=== PATIENT | female | born 1965 | race Caucasian/White ===

== ENCOUNTER 2016-09-28 21:20 | Inpatient (IN) | payer OTHER ==
[~2016-09-28] VITALS: Ht 170.2 cm; Wt 76.7 kg
[2016-09-28 21:30] VITALS: BP 139/82; PULSE 77; RESP 18; TEMP 98.1; O2SAT 99
[2016-09-28] MEDS ORDERED: SODIUM CHLOR 0.9% 1000 ML INJ 1,000 ML IV SCH ×2 (21:38→23:00)
[2016-09-28] MEDS ORDERED: ONDANSETRON HCL 4 MG/2 ML VIAL IVP ONE (21:45)
[2016-09-28] MEDS ORDERED: HYDROmorphone HCL PF 1 MG/ML VIAL IV PUSH ONE (21:45)
--- NOTE | 2016-09-28 22:14 | PD ---
HPI Chief Complaint: Back/ Neck Pain or Injury Time Seen by Provider: 22:02 Travel History International Travel<30 days: No Contact w/Intl Traveler<30days: No Traveled to known affect area: No History of Present Illness HPI 51-year-old female that presents to the ED for evaluation of trauma transfer. Patient was transferred here from [facility] for evaluation of a fall. Patient had a fall from a ladder about 10 feet. Patient was evaluated at the facility and had multiple scans which were positive for a inferior pubic rami fracture as well as an L3 burst fracture with compression of the cord. The did not have a neurosurgeon or a trauma surgeon in the area so they contacted Dr. Curran from our facility who agreed to transfer to this facility for further evaluation. Patient was given pain medication with some relief but she continues to have pain. Per patient she has no numbness, tilling , weakness. Per patient on her pain is on the right hip which is the most painful. Per patient she does have some back pain but not as bad as the hip. Per patient her pain currently 6 out of 10. She denies any urinary or bowel movement issues. She denies any discoloration. No allergies to medication. No other injuries reported. Per patient she's never had any injuries to her back. She has no surgeon or PCP in the area. [facility] Past Medical History Diminished Hearing: No Tetanus Vaccination: < 5 Years Influenza Vaccination: No ?: Not Social History Alcohol Use: No Tobacco Use: No Substance Use: No Allergies-Medications (Allergen,Severity, Reaction): Coded Allergies: No Known Allergies (Unverified , 09/28/16) Review of Systems Except as stated in HPI: all other systems reviewed are Neg Physical Exam Narrative GENERAL: SKIN: Warm and dry. HEAD: Atraumatic. Normocephalic. EYES: Pupils equal and round. No scleral icterus. No injection or drainage. ENT: No nasal bleeding or discharge. Mucous membranes pink and moist. Tongue is midline. No uvula deviation. NECK: Trachea midline. No JVD. CARDIOVASCULAR: Regular rate and rhythm. No murmurs, S3, S4. RESPIRATORY: No accessory muscle use. Clear to auscultation. Breath sounds equal bilaterally. GASTROINTESTINAL: Abdomen soft, non-tender, nondistended. Hepatic and splenic margins not palpable. MUSCULOSKELETAL: Extremities without clubbing, cyanosis, or edema. No obvious deformities. Full range of motion of the upper and lower extremities bilaterally. 2+ pulses bilaterally. Patient has reproducible lumbar spine tenderness to palpation. Patient has pain with range of motion of the right hip. Good sensation in the lower legs. 5 out of 5 strength in the lower extremities. No discoloration on the lower extremities. Sensation intact. NEUROLOGICAL: Awake and alert. No obvious cranial nerve deficits. Motor grossly within normal limits. Five out of 5 muscle strength in the arms and legs. Normal speech. PSYCHIATRIC: Appropriate mood and affect; insight and judgment normal. Data Data Last Documented VS Vital Signs Date Time Temp Pulse Resp B/P Pulse Ox O2 Delivery O2 Flow Rate FiO2 09/28/16 21:30 98.1 77 18 139/82 99 Orders Hydromorphone Pf Inj (Dilaudid Pf Inj) (09/28/16 21:45) Ondansetron Inj (Zofran Inj) (09/28/16 21:45) Sodium Chlor 0.9% 1000 Ml Inj (Ns 1000 M (09/28/16 21:38) Admit Order (Ed Use Only) (09/28/16 21:42) MDM Medical Decision Making Medical Screen Exam Complete: Yes Emergency Medical Condition: Yes Medical Record Reviewed: Yes Differential Diagnosis Trauma versus L3 fracture versus palpable fracture versus pubic ramus fracture versus fall from ladder versus head injury Narrative Course 51-year-old female that presents to the ED for evaluation of trauma transfer. Patient was properly examined and her records were reviewed. Patient came here with paperwork from the facility with reports from the CAT scan as well as lab work. I reviewed extensively the medical records provided and CT of the cervical spine did not show any sign of acute disease, CT of the brain did not show any sign of acute disease, CT of the thoracic spine did not show any sign of acute disease, CT of the lumbar spine show acute impacted comminuted 3 column L3 burst fracture with Marcaine posterior displacement2. Endplate causing severe spinal canal stenosis. Fracture line involving the right L3 posterior pedicle and the left lamina. Dorsal subluxation of the right L3 [address] of the abdomen and pelvis shows fracture of the inferior right pubic drama, also fractures involving the T12 and L3. No organ injuries. Blood work show viable second of 14, RBC of 4.3, H&H of 13.6 and 40.0, platelets of 3:30, MCV of 99.3, neutrophils of 80.4%, lymphs of 12.3%. Sodium 136, potassium of 3.8, chloride of 96, CO2 of 23, a gap of 17, glucose of 101, BUN of 16, creatinine of 0.81, calcium of 8.9, GFR of 85, alcohol blood of 208. LFTs within normal limits. Chest x-ray was negative. Patient is neurovascularly intact at this time. She does complain more of right hip pain than back pain but she does have back pain. Pain at this time is 6 out of 10. She will be given 1 more dose of pain medication as well as fluids. Case was discussed with Dr. Curran who agrees to admit the patient. He wants me to contact neurosurgery. I spoke with Dr. Aviles over the phone who was made aware of CT report and who wants me to order a stat MRI as well as a stat CT and call him back with the results. These orders were placed by me. Case was signed out to my attending Dr Velazquez pending MRI report to call back Dr Aviles. Edgar Montgomery Sep 28, 2016 22:14
[2016-09-28] MEDS ORDERED: NALOXONE HCL 0.4 MG/ML AMP IV PRN (22:30)
[2016-09-28] MEDS ORDERED: SODIUM CHLORIDE 0.9% FLUSH 10 ML FLUSH IV FLUSH PRN (22:30)
[2016-09-28] MEDS ORDERED: ONDANSETRON HCL 4 MG/2 ML VIAL IV PRN (22:30)
[2016-09-28] MEDS ORDERED: MORPHINE SULFATE 4 MG/ML INJ IV PRN (22:30)
[2016-09-28] MEDS ORDERED: Post-op Orders (for Pharmacy) MISC XX ONE (22:30)
--- NOTE | 2016-09-28 22:53 | RADRPT ---
EXAM DATE/TIME: 09/28/2016 22:25 [facility] COMPARISON: No previous studies available for comparison. INDICATIONS : Trauma, fell from a ladder. Known L3 fracture. Transfer from [facility]. RADIATION DOSE: 35.86 CTDIvol (mGy) MEDICAL HISTORY : None SURGICAL HISTORY : None. ENCOUNTER: Initial ACUITY: 1 day PAIN SCALE: 9/10 LOCATION: lumbar TECHNIQUE: Volumetric scanning of the lumbar spine was performed. Multiplanar reconstructions in the sagittal, coronal and oblique axial planes were performed. Using automated exposure control and adjustment of the mA and/or kV according to patient size, radiation dose was kept as low as reasonably achievable t o obtain optimal diagnostic quality images. DICOM format image data is available electronically for review and comparison. FINDINGS: VERTEBRAE: There is a severe compression fracture at the L3 vertebral body. This involves the anterior and poste rior aspects of the L3 vertebral body. There is very prominent compressive changes at the superior as pect of the L3 vertebral body. There is a vertical component extending through the midportion of the vertebral body involving the inferior endplates. There is very prominent posterior displacement of th e posterior superior aspect of the L3 vertebral body into the spinal canal causing severe stenosis. T he posterior superior aspect of the L3 vertebral body is displaced by approximately 1.3 cm posteriorl y. There is fracturing at the base of the L3 spinous process and medial left lamina and inferior left facet. ALIGNMENT: No evidence of subluxation. T12-L1: The thecal sac has a normal diameter. No evidence of disc bulge or protrusion. The neural foramina are patent bilaterally. L1-L2: The thecal sac has a normal diameter. No evidence of disc bulge or protrusion. The neural foramina are patent bilaterally. L2-L3: There is diffuse disc bulge accompanying the fracturing of the superior aspect of the L3 vertebral [place] with retropulsion of the posterior superior aspect of the L3 vertebral body. There is severe steno sis secondary to the retropulsion with the AP dimension of the thecal sac narrowed to 5 mm. The neur al foramina are patent bilaterally. L3-L4: The thecal sac has a normal diameter. No evidence of disc bulge or protrusion. The neural foramina are patent bilaterally. L4-L5: The thecal sac has a normal diameter. No evidence of disc bulge or protrusion. The neural foramina are patent bilaterally. L5-S1: The thecal sac has a normal diameter. No evidence of disc bulge or protrusion. The neural foramina are patent bilaterally. CONCLUSION: Severe unstable fracture of the L3 level involving the anterior and posterior aspects of the L3 verte bral body and the base of the spinous process and the left lamina and left inferior facet. There is v richelle prominent posterior retropulsion of the posterior superior aspect of the L3 vertebral body creati ng severe stenosis. Kenneth Ortez MD on September 28, 2016 at 22:42 Board Certified Radiologist. This report was verified electronically.
[2016-09-28 23:00] VITALS: BP 146/78; PULSE 80; RESP 16; O2SAT 97
[2016-09-28] MEDS ORDERED: PANTOPRAZOLE SOD 40 MG DELAYED RELEASE TAB PO SCH (23:00)
--- NOTE | 2016-09-28 23:28 | PD ---
Physical Exam Date Seen by Provider: Sep 28, 2016 Time Seen by Provider: 23:00 Narrative I patient with Edgar Montgomery PA-C. Patient presents today from [facility]. The patient had a fall from a ladder and was found to have a burst fracture of the L3 lumbar spine. Patient also noted to have a pubic rami fracture. The patient was accepted by Dr. Porras, on-call trauma surgeon for transfer. The patient has CT scan that showed retropulsion of the burst fracture into the spinal canal causing severe spinal stenosis. His information was relayed to Dr. Aviles who will be taking the patient emergently to the operating room for debridement of these fragments. The patient currently is neurologically intact. Data Data Last Documented VS Vital Signs Date Time Temp Pulse Resp B/P Pulse Ox O2 Delivery O2 Flow Rate FiO2 09/28/16 21:30 98.1 77 18 139/82 99 Orders Hydromorphone Pf Inj (Dilaudid Pf Inj) (09/28/16 21:45) Ondansetron Inj (Zofran Inj) (09/28/16 21:45) Sodium Chlor 0.9% 1000 Ml Inj (Ns 1000 M (09/28/16 21:38) Admit Order (Ed Use Only) (09/28/16 21:42) MDM Medical Record Reviewed: Yes Supervised Visit with LILIAN: Yes Narrative Course 51-year-old female presents with known lumbar fracture and pubic rami fracture. The patient fell off a ladder. The patient is neurologically intact at this time. CT scan shows retropulsion of the vertebrae from L3 lumbar vertebrae, causing severe spinal stenosis. She will be taken to the operating room emergently by Dr. Aviles. Diagnosis Primary Impression: L3 burst fracture with retropulsion into the spinal canal. Additional Impressions: Fracture of right inferior pubic ramus Fall on and from ladder causing accidental injury Heber Velazquez MD Sep 28, 2016 23:28
--- NOTE | 2016-09-28 23:45 | RADRPT ---
EXAM DATE/TIME: 09/28/2016 22:37 [facility] COMPARISON: CT LUMBAR SPINE W/O CONTRAST, September 28, 2016, 22:25. INDICATIONS : Trauma. Pt fell off ladder. MEDICAL HISTORY : Hypertension. Uterine ca. SURGICAL HISTORY : Total knee replacement, left. Hysterectomy. ENCOUNTER: Initial ACUITY: 1 day PAIN SCORE: 5/10 LOCATION: back TECHNIQUE: Multiplanar multisequence MRI of the lumbar spine was performed without contrast. FINDINGS: The most caudal appearing lumbar vertebra is numbered as L5. VERTEBRAE: There is compression deformity of the L3 vertebral body with a bony fragment displaced posteriorly ma rkedly narrowing the thecal sac. The bone fragment is displaced posteriorly by almost a centimeter. Small compression fracture of the superior plate of T12. Otherwise normal alignment. CONUS: Normal level and configuration. T12-L1: The thecal sac has a normal diameter. No evidence of disc bulge or protrusion. The neural foramina are patent bilaterally. L1-L2: The thecal sac has a normal diameter. No evidence of disc bulge or protrusion. The neural foramina are patent bilaterally. L2-L3: The thecal sac has a normal diameter. No evidence of disc bulge or protrusion. The neural foramina are patent bilaterally. L3-L4: The thecal sac is markedly narrowed down to 4-5 mm in the midline. There is a prominent bone fragment from the L3 superior endplate fracture. The neural foramina are patent bilaterally. The soft tissue posterior to the L4 vertebral body I suspect epidural hematoma. L4-L5: The epidural hematoma it ends just above the 45 disc space . The thecal sac has a normal diameter. No evidence of disc bulge or protrusion. The neural foramina are patent bilaterally. L5-S1: The thecal sac has a normal diameter. No evidence of disc bulge or protrusion. The neural foramina are patent bilaterally. CONCLUSION: Prominent compression deformity with posterior displacement of the L3 vertebral body. The thecal sac is markedly narrowed. There is an epidural hematoma posteriorly L3 extending down to the L4-5 disc sp faheem. Non displaced compression deformity of T12. Ranjit Herzog MD on September 28, 2016 at 23:36 Board Certified Radiologist. This report was verified electronically.
[2016-09-29] VITALS (11 sets, daily range): BP systolic 89–154; BP diastolic 60–79; PULSE 66–97; RESP 10–31; TEMP 97.8–98.2; O2SAT 92–99
[2016-09-29] MEDS ORDERED: GELATIN POWDER 1 GM PACKET ONE (00:01)
[2016-09-29] MEDS ORDERED: methylPREDNISolone ACETATE 40 MG/ML VIAL ONE (00:01)
[2016-09-29] MEDS ORDERED: DEXAMETHASONE SOD PHOS 20 MG/5 ML VIAL ONE (00:01)
[2016-09-29] MEDS ORDERED: GENTAMICIN SULFATE 80 MG/2 ML VIAL ONE ×2 (00:01→01:05)
--- NOTE | 2016-09-29 00:35 | PD.CONS ---
[facility] Service Neurosurg Consult Requested By Leo ALEJANDRE Reason for Consult L3 fracture, spinal cord compresion Primary Care Physician Non-Staff History of Present Illness This is a 51 year old female who presents today from [facility]. The patient had a fall from a ladder 8 to 10 feet and was found to have a burst fracture of the L3 lumbar spine with compression of the spinal cord. In addition she had a pubic rami fracture. The patient was accepted by Dr. Porras, on-call trauma surgeon for transfer. The patient has CT scan that showed retropulsion of the burst fracture into the spinal canal causing severe spinal stenosis with spinal cord compression. Neurosurgical consultation was requested Review of Systems Constitutional: DENIES: Diaphoretic episodes, Fatigue, Fever, Weight gain, Weight loss, Chills, Dizziness, Change in appetite, Night Sweats Endocrine: COMPLAINS OF: Heat/cold intolerance, DENIES: Abnorml menstrual pattern, Polydipsia, Polyuria, Polyphagia Eyes: DENIES: Blurred vision, Diplopia, Eye inflammation, Eye pain, Vision loss , Photosensitivity, Double Vision Ears, nose, mouth, throat: DENIES: Tinnitus, Hearing loss, Vertigo, Nasal discharge, Oral lesions, Throat pain, Hoarseness, Ear Pain, Running Nose, Epistaxis, Sinus Pain, Toothache, Odynophagia Respiratory: DENIES: Apneas, Cough, Snoring, Wheezing, Hemoptysis, Sputum production, Shortness of breath Cardiovascular: DENIES: Chest pain, Palpitations, Syncope, Dyspnea on Exertion , PND, Lower Extremity Edema, Orthopnea, Claudication Gastrointestinal: DENIES: Abdominal pain, Black stools, Bloody stools, Constipation, Diarrhea, Nausea, Vomiting, Difficulty Swallowing, Anorexia Genitourinary: DENIES: Abnormal vaginal bleeding, Dysmenorrhea, Dyspareunia, Sexual dysfunction, Urinary frequency, Urinary incontinence, Urgency, Hematuria , Dysuria, Nocturia, Vaginal discharge Musculoskeletal: DENIES: Joint pain, Muscle aches, Stiffness, Joint Swelling, Back pain, Neck pain Integumentary: DENIES: Abnormal pigmentation, Pruritus, Rash, Nail changes, Breast masses, Breast skin changes, Nipple discharge Hematologic/lymphatic: DENIES: Bruising, Lymphadenopathy Immunologic/allergic: DENIES: Eczema, Urticaria Neurologic: COMPLAINS OF: Paresthesias, DENIES: Abnormal gait, Headache, Localized weakness, Seizures, Speech Problems, Tremor, Poor Balance Past Family Social History Allergies: Coded Allergies: No Known Allergies (Unverified , 09/28/16) Past Medical History Negative Past Surgical History None Active Ordered Medications Current Medications Hydromorphone HCl (Dilaudid Pf Inj) 0.5 mg ONCE ONCE IV PUSH Last administered on 09/28/16 21:45; Start 09/28/16 at 21:45; Stop 09/28/16 at 21:46; Status DC Ondansetron HCl 4 mg 4 mg ONCE ONCE IVP Last administered on 09/28/16 21:45; Start 09/28/16 at 21:45; Stop 09/28/16 at 21:46; Status DC Sodium Chloride 1,000 ml @ 1,000 mls/hr Q1H IV Last administered on 09/28/16 21:38; Start 09/28/16 at 21:38; Stop 09/28/16 at 22:38; Status DC Sodium Chloride (NS 1000 ml Inj) 1,000 ml @ 100 mls/hr Q10H IV ; Start 09/28/16 at 23:00 Sodium Chloride (NS Flush) 2 ml UNSCH PRN IV FLUSH FLUSH AFTER USING IV ACCESS ; Start 09/28/16 at 22:30 Sodium Chloride (NS Flush) 2 ml BID IV FLUSH ; Start 09/29/16 at 09:00 Ondansetron HCl (Zofran Inj) 4 mg Q6H PRN IV NAUSEA OR VOMITING; Start 09/28/16 at 22:30 Pantoprazole Sodium (Protonix) 40 mg Q24H PO ; Start 09/28/16 at 23:00 Docusate Sodium (Colace) 100 mg BID PO ; Start 09/29/16 at 09:00 Miscellaneous Information (Post-op Orders (for Pharmacy)) STAT ONCE XX ; Start 09/28/16 at 22:30; Stop 09/28/16 at 22:39; Status DC Oxycodone/ Acetaminophen (Percocet 5-325 Mg) 1 tab Q4H PRN PO PAIN SCALE 3 TO 5; Start 09/28/16 at 22:30 Morphine Sulfate (Morphine Inj) 4 mg Q2H PRN IV Pain 6-10 Last administered on 09/28/16t 23:16; Start 09/28/16 at 22:30 Naloxone HCl (Narcan Inj) 0.4 mg UNSCH PRN IV SEE LABEL COMMENTS; Start at 22:30 Methocarbamol (Robaxin) 500 mg Q8HR PO ; Start 09/29/16 at 06:00 Methylprednisolone Acetate (Depo-Medrol Inj) 40 mg STK-MED ONCE .ROUTE ; Start 09/29/16 at 00:01; Stop 09/29/16 at 00:03; Status DC Dexamethasone Sodium Phosphate (Decadron Inj) 20 mg STK-MED ONCE .ROUTE ; Start 09/29/16 at 00:01; Stop 09/29/16 at 00:03; Status DC Gentamicin Sulfate (Gentamicin Inj) 240 mg STK-MED ONCE .ROUTE ; Start 09/29/16 at 00:01; Stop 09/29/16 at 00:04; Status DC Gelatin (Gelfoam Powder Pack) 2 gm STK-MED ONCE .ROUTE ; Start 09/29/16 at 00:01 ; Stop 09/29/16 at 00:04; Status DC Family History Non contributory Social History Alcohol Use: No Tobacco Use: No Substance Use: No Physical Exam Vital Signs Vital Signs Date Time Temp Pulse Resp B/P Pulse Ox O2 Delivery O2 Flow Rate FiO2 09/28/16 21:30 98.1 77 18 139/82 99 Physical Exam She is alert, awake and oriented to time, place and person. Speech is fluent. Higher cognitive functions are normal. Cranial nerve examination demonstrates the pupils to be equal, round, and reactive to light. Extra-ocular movements are intact. Facial motor and sensory function are normal and symmetrical. Gross hearing is intact, bilaterally. The uvula is midline and elevates symmetrically with the soft palate. Sternocleidomastoid and trapezius muscles have normal and symmetrical strength. Other cranial nerves are intact. Neck is soft and supple. Cervical spine has a full range of motion in anterior flexion, extension, lateral bending, and rotation without pain. There is no tenderness to palpation to the spinous processes or paraspinal muscles. Muscle testing reveals normal bulk and tone overall without rigidity, spasticity , fasciculations, or atrophy. Muscle strength is 5/5 in all muscle groups of both upper extremities including deltoid, biceps, triceps, brachioradialis, wrist extension and naval aircrewman avionics. In the lower extremities, strength is 5/5 in both iliopsoas, quadriceps, hamstrings, plantar flexion, dorsiflexion, and extensor hallicus longus. Sensory examination is intact to light touch and sharp/dull discrimination in both the upper and lower extremities, symmetrically. Deep tendon reflexes are 2+ and symmetrical in the biceps, triceps, and brachioradialis, bilaterally, in the upper extremities. In the lower extremities , the patellar and Achilles are 2+, bilaterally. There is a bilateral plantar flexion response. Hoffmanns sign is negative. There is no clonus or other abnormal reflexes noted. Cerebellar examination is intact to [id number] test, rapid rhythmic alternating motion. There is no dysmetria, dysdiadochokinesia, truncal ataxia, or tremor. Imaging Last Impressions Lumbar Spine MRI 09/28/162146 Signed Impressions: Service Date/Time: Wednesday, September 28, 2016 22:37 - CONCLUSION: Prominent compression deformity with posterior displacement of the L3 vertebral body. The thecal sac is markedly narrowed. There is an epidural hematoma posteriorly L3 extending down to the L4-5 disc space. Non displaced compression deformity of T12. Ranjit Herzog MD Lumbar Spine CT 09/28/162146 Signed Impressions: Service Date/Time: Wednesday, September 28, 2016 22:25 - CONCLUSION: Severe unstable fracture of the L3 level involving the anterior and posterior aspects of the L3 vertebral body and the base of the spinous process and the left lamina and left inferior facet. There is very prominent posterior retropulsion of the posterior superior aspect of the L3 vertebral body creating severe stenosis. Kenneth Ortez MD Attending Statement I reviewed her clinical and radiological studies. neuro checks in a serial fashion. Very unstable L3 burst ftacture with spinal cord compresion. . An open reduction and internal fixation with L2-L5 arthrodhesis is indicated as recommended by the [place] [employer]. We have discussed the details including the [id number] details of the surgical procedure, its indications, alternatives, risks, and potential complications. Risks and potential complications include, but are not limited to, infection, blood loss, CSF leak, partial or complete loss of sight in one or both eyes, paresis, paralysis, permanent pain or difficulty swallowing, loss of bowel or bladder function, complications from anesthesia, blood clot, stroke, myocardial infarction, or even . Pubic fracture. Consult orthopedics Rib fracture. narcotic analgesics Respiratory. pulmonary toilette, nasotracheal suction, and breathing treatments with nebulizers. C spine is cleared PT and OT eval Nutrition. NPO Renal. monitor closely urine output, BUN and creatinine Endocrine. Monitor serial Acu checks and SSI for tight control He is anticoagulated with Efian, which increases his risk of hemorrhagic complications ID monitor for signs of infection Protonix for stress ulcer prophylaxis Hugh hose and SCD's for DVT prophylaxis Jer Aviles MD Sep 29, 2016 00:35
[2016-09-29] MEDS ORDERED: VANCOMYCIN HCL 1000 MG VIAL OTHER ONE (01:19)
[2016-09-29] MEDS ORDERED: ceFAZolin INJ 1,000 MG VIAL IV ONE (01:32)
[2016-09-29] MEDS ORDERED: NS + KCL 20 MEQ INJ 1,000 ML IV SCH (01:36)
--- NOTE | 2016-09-29 01:36 | PD.OP ---
Operative Report Surgeon: Jer Jenkins MD Sep 29, 2016 01:36
[2016-09-29 01:43] LABS: HEMATOCRIT 35.7 % (35.0-46.0); MEAN CELL VOLUME 98.1 FL (80.0-100.0); MEAN CORPUSCULAR HEMOGLOBIN 33.2 PG (27.0-34.0); MEAN CORPUSCULAR HGB CONC 33.9 % (32.0-36.0); PLATELET COUNT 265 TH/MM3 (150-450); RED BLOOD COUNT 3.64 MIL/MM3 (4.00-5.30); RED CELL DISTRIBUTION WIDTH 12.5 % (11.6-17.2); REVIEW FLAG FINAL; WHITE BLOOD COUNT 8.7 TH/MM3 (4.0-11.0)
[2016-09-29] MEDS ORDERED: ACETAMINOPHEN 325 MG TAB PO PRN (01:45)
[2016-09-29] MEDS ORDERED: diphenhydrAMINE HCL 50 MG/ML VIAL IV PRN (01:45)
[2016-09-29] MEDS ORDERED: MORPHINE SULFATE 4 MG/ML INJ IV PUSH PRN (01:45)
[2016-09-29] MEDS ORDERED: NALOXONE HCL 0.4 MG/ML AMP IV PRN (01:45)
[2016-09-29] MEDS ORDERED: SODIUM CHLORIDE 0.9% FLUSH 5 ML FLUSH IVF PRN (01:45)
[2016-09-29] MEDS ORDERED: HEPARIN SODIUM - IV 10,000 UNITS/10 ML VIAL OTHER ONE (01:49)
[2016-09-29] MEDS ORDERED: THROMBIN (TOPICAL) 5,000 UNIT VIAL OTHER ONE (02:00)
[2016-09-29] MEDS ORDERED: GELFOAM SIZE 100 OTHER ONE (02:00)
[2016-09-29] MEDS ORDERED: ceFAZolin 2 GM PREMIX 50 ML IV SCH (02:00)
[2016-09-29] MEDS ORDERED: HEPARIN SODIUM - IV 10,000 UNITS/10 ML VIAL ONE (02:39)
[2016-09-29 04:09] LABS: BLOOD GAS BASE EXCESS -6.1 mmol/L (-2-2); BLOOD GAS CARBOXYHEMOGLOBIN 1.5 % (0-4); BLOOD GAS HCO3 18 mmol/L (22-26); BLOOD GAS METHEMOGLOBIN 1.3 % (0-2); BLOOD GAS O2 HGB SATURATION 97 % (90-100); BLOOD GAS OXYGEN CONTENT 14.8 Vol % (12.0-20.0); BLOOD GAS PCO2 34 mmHg (38-42); BLOOD GAS PO2 270 mmHg (61-120); BLOOD GAS TOTAL HGB 10.4 G/DL (12.0-16.0); CRITICAL VALUE NO; FIO2 60 %; TEMP CORR TO 98.6
[2016-09-29 04:10] LABS: STAT NO
[2016-09-29] MEDS ORDERED: fentaNYL CITRATE 250 MCG/5 ML AMP ONE (05:46)
[2016-09-29] MEDS ORDERED: ACETAMINOPHEN 1000 MG/100 ML VIAL IV ONE (05:46)
[2016-09-29] MEDS ORDERED: MORPHINE SULFATE 4 MG/ML INJ ONE (05:46)
--- NOTE | 2016-09-29 05:50 | RADRPT ---
EXAM DATE/TIME: 09/29/2016 04:38 [facility] COMPARISON: No previous studies available for comparison. INDICATIONS : Open reduction internal fixation of the third lumbar vertebrae fracture. MEDICAL HISTORY : Hypertension. Uterine Ca SURGICAL HISTORY : Total knee replacement, right. Hysterectomy. ENCOUNTER: Initial ACUITY: 1 day PAIN SCORE: Non-responsive. LOCATION: Bilateral lumbar FINDINGS: Two view examination was performed. The L3 fracture has been fixated with interpedicular screws above and below the level. CONCLUSION: Fixation of L3 compression fracture or. Hardware is grossly intact. Ranjit Herzog MD on September 29, 2016 at 5:48 Board Certified Radiologist. This report was verified electronically.
[2016-09-29] MEDS: METHOCARBAMOL 500 MG TAB PO SCH ×3 (06:00→21:39)
[2016-09-29] MEDS: ceFAZolin 2 GM PREMIX 50 ML IV SCH ×3 (06:00→21:40)
[2016-09-29] MEDS ORDERED: DO NOT ADM ANY ANTICOAGULANT DRUGS PRN (06:15)
[2016-09-29] MEDS: HYDROmorphone HCL PCA 6 MG/30 ML IV SCH ×3 (06:22→14:24)
[2016-09-29 06:35] LABS: BASOPHIL % 0.1 % (0.0-2.0); HEMATOCRIT 27.1 % (35.0-46.0); HEMO FLAGS DIFF FINAL; LYMPH % 5.1 % (9.0-44.0); LYMPHOCYTE # 0.6 TH/MM3 (1.0-4.8); MEAN CORPUSCULAR HEMOGLOBIN 32.9 PG (27.0-34.0); MEAN CORPUSCULAR HGB CONC 32.9 % (32.0-36.0); MONO % 2.7 % (0.0-8.0); NEUT % 92.1 % (16.0-70.0); PLATELET COUNT 215 TH/MM3 (150-450); RED BLOOD COUNT 2.71 MIL/MM3 (4.00-5.30); RED CELL DISTRIBUTION WIDTH 12.3 % (11.6-17.2); WHITE BLOOD COUNT 11.9 TH/MM3 (4.0-11.0)
--- NOTE | 2016-09-29 06:53 | PD.CONS ---
[facility] Service Critical Care Medicine Consult Requested By Stefan Reason for Consult Critical Care Management Primary Care Physician Non-Staff History of Present Illness 51 y/o woman was helping a neighbor trim a tree when she fell approximately 10 feet from a latter to ground. Immediate back pain. Scans and MRI revealed L3 burst fracture with retropulsion of fragments and severe thecal sac compression. An epidural hematoma was noted as well. Distal neurological function was grossly intact in the ED. She went directly to the OR for decompression and reconstruction of lumbar spine. Additional injuries include left inferior pubic rami fracture and T12 compression injury. Review of Systems Constitutional: DENIES: Diaphoretic episodes, Fatigue, Fever, Weight gain, Weight loss, Chills, Dizziness, Change in appetite, Night Sweats Endocrine: DENIES: Abnorml menstrual pattern, Heat/cold intolerance, Polydipsia , Polyuria, Polyphagia Eyes: DENIES: Blurred vision, Diplopia, Eye inflammation, Eye pain, Vision loss , Photosensitivity, Double Vision Ears, nose, mouth, throat: DENIES: Tinnitus, Hearing loss, Vertigo, Nasal discharge, Oral lesions, Throat pain, Hoarseness, Ear Pain, Running Nose, Epistaxis, Sinus Pain, Toothache, Odynophagia Cardiovascular: DENIES: Chest pain, Palpitations, Syncope, Dyspnea on Exertion , PND, Lower Extremity Edema, Orthopnea, Claudication Gastrointestinal: DENIES: Abdominal pain, Black stools, Bloody stools, Constipation, Diarrhea, Nausea, Vomiting, Difficulty Swallowing, Anorexia Musculoskeletal: COMPLAINS OF: Joint pain, Muscle aches, Back pain Hematologic/lymphatic: DENIES: Bruising, Lymphadenopathy Immunologic/allergic: DENIES: Eczema, Urticaria Psychiatric: COMPLAINS OF: Anxiety Past Family Social History Allergies: Coded Allergies: No Known Allergies (Unverified , 09/28/16) Past Medical History Past Medical History Diminished Hearing: No Tetanus Vaccination: < 5 Years Influenza Vaccination: No ?: Not Social History Alcohol Use: No Tobacco Use: No Substance Use: No Allergies-Medications Allergies-Medications (Allergen,Severity, Reaction): Coded Allergies: No Known Allergies (Unverified , 09/28/16) Physical Exam Vital Signs Vital Signs Date Time Temp Pulse Resp B/P Pulse Ox O2 Delivery O2 Flow Rate FiO2 09/29/16 06:30 62 15 97/59 94 Nasal Cannula 2 09/29/16 06:22 16 09/29/16 06:15 62 15 94/59 94 Nasal Cannula 2 09/29/16 06:00 67 15 104/63 95 Nasal Cannula 2 09/29/16 05:45 75 15 96/57 94 Nasal Cannula 2 09/29/16 05:45 75 15 96/57 94 Nasal Cannula 2 09/29/16 05:37 97.8 79 15 102/61 96 Nasal Cannula 2 09/28/16 23:00 80 16 146/78 97 Room Air 09/28/16 21:30 98.1 77 18 139/82 99 Physical Exam P 67, BP 86/55, R 13, Sats 96% Head: Atraumatic. Neck: Supple, airway unobstructed. No stridor. Lungs: Clear, comfortable pattern. No adventitious sounds. Heart: NL S1S2, bradycardia, no JVD. RRR. Abdomen: Soft, nontender, no guarding, BS active. Extremities: Warm, well perfused. No edema or cyanosis. Neuro: Sleepy after sedation. Conversant. Moves legs with 5/5 strength. Toes down shantanu. KENYA. Laboratory Laboratory Tests Test 09/29/16 09/29/16 09/29/16 09/29/16 01:25 01:26 03:50 05:56 White Blood Count 8.7 11.9 Red Blood Count 3.64 2.71 Hemoglobin 12.1 8.9 Hematocrit 35.7 27.1 Mean Corpuscular Volume 98.1 100.0 Mean Corpuscular Hemoglobin 33.2 32.9 Mean Corpuscular Hemoglobin 33.9 32.9 Concent Red Cell Distribution Width 12.5 12.3 Platelet Count 265 215 Mean Platelet Volume 7.2 7.6 Blood Type O NEGATIVE O NEGATIVE Antibody Screen NEGATIVE Crossmatch Leukocyte-Reduced Red Blood Cells Blood Bank Comment Blood Gas Patient Temperature 98.6 Blood Gas HCO3 18 Blood Gas Base Excess -6.1 Blood Gas Oxygen Saturation 97 Arterial Blood pH 7.36 Arterial Blood Partial 34 Pressure CO2 Arterial Blood Partial 270 Pressure O2 Arterial Blood Oxygen Content 14.8 Arterial Blood 1.5 Carboxyhemoglobin Arterial Blood Methemoglobin 1.3 Blood Gas Hemoglobin 10.4 Blood Gas Inspired Oxygen 60 Neutrophils (%) (Auto) 92.1 Lymphocytes (%) (Auto) 5.1 Monocytes (%) (Auto) 2.7 Eosinophils (%) (Auto) 0.0 Basophils (%) (Auto) 0.1 Neutrophils # (Auto) 11.0 Lymphocytes # (Auto) 0.6 Monocytes # (Auto) 0.3 Eosinophils # (Auto) 0.0 Basophils # (Auto) 0.0 CBC Comment DIFF FINAL Differential Comment Result Diagram: 09/29/[address] and MRI lumbar spine Outside films from [facility]. Assessment and Plan Assessment and Plan Assessment: 1. Fall from 10 feet a. L3 burst fracture with thecal sac compression. b. Left inferior pubic rami fracture by report from OSH. c. T12 compression injury, stable. Plan: 1. Neuro checks scheduled. 2. Maint iv fluid. 3. Watch for urinary retention. 4. PT evaluation. 5. Protonix. 6. Hold chemical DVT px. 7. SCDs. 8. Continue trauma survey for possible associated injuries. Overall impression: Stable respiratory and hemodynamic function s/p reconstruction lumbar spine. Heber Jo MD Sep 29, 2016 06:53
[2016-09-29 07:09] LABS: BICARBONATE 21.5 MEQ/L (21.0-32.0); INDIRECT BILIRUBIN 0.2 MG/DL (0.0-0.8); POTASSIUM 3.8 MEQ/L (3.5-5.1); TOTAL BILIRUBIN ADULT 0.3 MG/DL (0.2-1.0)
[2016-09-29] MEDS: LACTULOSE SYRUP 20 GM/30 ML CUP PO SCH (08:49)
[2016-09-29] MEDS: DOCUSATE SODIUM 100 MG CAP PO SCH ×2 (08:49→21:40)
[2016-09-29] MEDS: SODIUM CHLORIDE 0.9% FLUSH 5 ML FLUSH IVF SCH ×2 (08:54→21:00)
[2016-09-29] MEDS ORDERED: PANTOPRAZOLE SODIUM 40 MG VIAL IVP SCH (09:00)
[2016-09-29] MEDS ORDERED: SODIUM CHLORIDE 0.9% FLUSH 10 ML FLUSH IV FLUSH SCH (09:00)
[2016-09-29] MEDS: PCA - TOTAL MG DILAUDID DELIVERED PER SHIFT SCH ×3 (10:00→22:00)
--- NOTE | 2016-09-29 11:20 | HHI.NSPN ---
(Saida Sanchez) Note Status Status: Progress Note (Saida Sanchez) Interval History Interval History This is a 51 year old female who presents today from [facility]. The patient had a fall from a ladder 8 to 10 feet and was found to have a burst fracture of the L3 lumbar spine with compression of the spinal cord. In addition she had a pubic rami fracture. The patient was accepted by Dr. Porras, on-call trauma surgeon for transfer. The patient has CT scan that showed retropulsion of the burst fracture into the spinal canal causing severe spinal stenosis with spinal cord compression. Neurosurgical consultation was requested. She underwent emergent ORIF L3 fracture with L2-L4 posterolateral fixation earlier this morning. 7: s/p ORIF L3 fracture, awake, alert, pain controlled on RN FLOAT pump. moving lower extremities. (Saida Sanchez) Labs, Micro, & Vital Signs Results Date Time Temp Pulse Resp B/P Pulse Ox O2 Delivery O2 Flow Rate FiO2 09/29/16 10:54 14 09/29/16 10:00 74 09/29/16 08:00 75 09/29/16 07:36 14 09/29/16 07:31 94 Nasal Cannula 3.00 09/29/16 06:30 62 15 97/59 94 Nasal Cannula 2 09/29/16 06:25 98.2 66 13 89/60 92 09/29/16 06:22 16 09/29/16 06:15 62 15 94/59 94 Nasal Cannula 2 09/29/16 06:00 67 15 104/63 95 Nasal Cannula 2 09/29/16 05:45 75 15 96/57 94 Nasal Cannula 2 09/29/16 05:45 75 15 96/57 94 Nasal Cannula 2 09/29/16 05:37 97.8 79 15 102/61 96 Nasal Cannula 2 09/28/16 23:00 80 16 146/78 97 Room Air 09/28/16 21:30 98.1 77 18 139/82 99 09/29/16 07:00 Intake Total 5251 ml Output Total 2510 ml Balance 2741 ml Constitutional Vital Signs Date Time Temp Pulse Resp B/P Pulse Ox O2 Delivery O2 Flow Rate FiO2 09/29/16 10:54 14 09/29/16 10:00 74 09/29/16 08:00 75 09/29/16 07:36 14 09/29/16 07:31 94 Nasal Cannula 3.00 09/29/16 06:30 62 15 97/59 94 Nasal Cannula 2 09/29/16 06:25 98.2 66 13 89/60 92 09/29/16 06:22 16 09/29/16 06:15 62 15 94/59 94 Nasal Cannula 2 09/29/16 06:00 67 15 104/63 95 Nasal Cannula 2 09/29/16 05:45 75 15 96/57 94 Nasal Cannula 2 09/29/16 05:45 75 15 96/57 94 Nasal Cannula 2 09/29/16 05:37 97.8 79 15 102/61 96 Nasal Cannula 2 09/28/16 23:00 80 16 146/78 97 Room Air 09/28/16 21:30 98.1 77 18 139/82 99 09/29/16 07:00 Intake Total 5251 ml Output Total 2510 ml Balance 2741 ml (Saida Sanchez) Review of Systems/Exam Exam Ms. Zapata is alert. Speech is fluent, conversing well. Cranial nerve examination: pupils equal, round and reactive to light. Motor: moving lower extremities off the bed, 5/5 plantarflexion and dorsiflexion Sensory examination is intact to light touch in both lower extremities. bilateral plantar flexion response. No ankle clonus. (Saida Sanchez) Medications Current Medications Current Medications Medications (Trade) Dose Ordered Sig/Luz Marina Route PRN Reason Start Time Stop Time Status Last Admin Dose Admin Ondansetron HCl (Zofran Inj) 4 mg Q6H PRN IV NAUSEA OR VOMITING 09/28/16 22:30 Docusate Sodium (Colace) 100 mg BID PO 09/29/16 09:00 09/29/16 08:49 Oxycodone/ Acetaminophen (Percocet 5-325 Mg) 1 tab Q4H PRN PO PAIN SCALE 3 TO 5 09/28/16 22:30 Methocarbamol (Robaxin) 500 mg Q8HR PO 09/29/16 06:00 IV Flush (NS Flush) 2 ml UNSCH PRN IVF FLUSH AFTER USING IV ACCESS 09/29/16 01:45 IV Flush (NS Flush) 2 ml BID IVF 09/29/16 09:00 09/29/16 08:54 Pantoprazole Sodium (Protonix Inj) 40 mg DAILY IVP 09/29/16 09:00 09/29/16 08:49 Morphine Sulfate (Morphine Inj) 2 mg Q2H PRN IV PUSH PAIN SCALE 1 TO 6 09/29/16 01:45 Morphine Sulfate (Morphine Inj) 4 mg Q2H PRN IV PUSH PAIN SCALE 7 TO 10 09/29/16 01:45 Acetaminophen (Tylenol) 650 mg Q4H PRN PO TEMPERATURE > 101.5 F 09/29/16 01:45 Naloxone HCl (Narcan Inj) 0.4 mg UNSCH PRN IV RESPIRATORY RATE LESS THAN 10 09/29/16 01:45 Diphenhydramine HCl (Benadryl Inj) 25 mg Q6H PRN IV ITCHING 09/29/16 01:45 Hydromorphone HCl (Dilaudid RN FLOAT Inj) 6 mg UNSCH IV 09/29/16 01:45 09/29/16 10:54 RN FLOAT Dosage Infused (Pha) 1 1 Q8HR .XX 09/29/16 06:00 Cefazolin Sodium/ Dextrose (Ancef 2 Gm Premix) 50 ml @ 100 mls/hr Q8HR IV 09/29/16 06:00 09/29/16 22:29 09/29/16 06:00 Miscellaneous Information ALL NURSING DEPARTME... UNSCH PRN .XX SEE LABEL COMMENTS 09/29/16 06:15 09/30/16 06:14 Lactulose (Lactulose Liq) 30 ml DAILY PO 09/29/16 09:00 09/29/16 08:49 (Saida Sanchez) Medical Decision Making MDM Remarks 51 y/o female s/p ORIF L3 burst fracture, L2-L4 posterolateral fixation 09/29/16 ( Saida Sanchez) Plan Plan Remarks cont pain control with RN FLOAT, cont neuro checks in ISC, clear to start mobilizing OOB later today as tolerated with TLSO brace, nonchemical dvt prophylaxis (Saida Sanchez) Attending Statement Neuro. Neuro checks in a serial fashion. Respiratory. pulmonary toilette, nasotracheal suction, and breathing treatments with nebulizers. PT and OT eval Nutrition. NPO Renal. monitor closely urine output, BUN and creatinine Endocrine. Monitor serial Acu checks and SSI for tight control ID monitor for signs of infection Protonix for stress ulcer prophylaxis Hugh hose and SCD's for DVT prophylaxis The exam, history, and the medical decision-making described in the above note were completed with the assistance of the mid-level provider. I reviewed and agree with the findings presented. I attest that I had a [id number] encounter with the patient on the same day, and personally performed and documented my assessment and findings in the medical record. (Jer Aviles MD) Saida Sanchez Sep 29, 2016 11:20 Jer Aviles MD Sep 30, 2016 08:45
[2016-09-29] MEDS ORDERED: CELE40TA PO (11:48)
[2016-09-29] MEDS ORDERED: XANA1TAB2 PO (11:48)
[2016-09-29] MEDS ORDERED: PHENYLEPH/NS 1000 MCG/10 ML SYR IV ONE (12:00)
[2016-09-29] MEDS ORDERED: NORMOSOL R INJ 2,000 ML IV ONE (12:00)
[2016-09-29] MEDS ORDERED: SODIUM CHLOR 0.9% 250 ML INJ 250 ML IV ONE (12:00)
[2016-09-29] MEDS ORDERED: SODIUM CHLORID 0.9% 500 ML INJ 500 ML IV ONE (12:00)
[2016-09-29] MEDS ORDERED: LACTATED RINGER'S 1000 ML INJ 1,000 ML IV ONE (12:00)
[2016-09-29] MEDS ORDERED: PROPOFOL 200 MG/20 ML AMP IV ONE (12:00)
[2016-09-29] MEDS ORDERED: ePHEDrine/NS 25 MG/5 ML SYR IV ONE (12:00)
[2016-09-29] MEDS ORDERED: NEOSTIGMINE 3 MG/3 ML SYR IV ONE (12:00)
[2016-09-29] MEDS ORDERED: ONDANSETRON HCL 4 MG/2 ML VIAL IV PUSH ONE (12:00)
--- NOTE | 2016-09-29 12:50 | HHI.CCPN ---
Subjective 24 Hour Review/Hospital Course 51 y..o female s/p fall,transfer form outside institution-L3 unstable fracture, which required emergent decompression,stable T12 fx,stable pubic fracture Objective Vital Signs Date Time Temp Pulse Resp B/P Pulse Ox O2 Delivery O2 Flow Rate FiO2 09/29/16 12:38 14 09/29/16 12:00 75 09/29/16 07:31 94 Nasal Cannula 3.00 09/29/16 06:30 97/59 09/29/16 06:25 98.2 Result Diagram: 09/29/16 0556 09/29/16 0556 Other Results Laboratory Tests Test 09/29/16 03:50 Blood Gas Patient Temperature 98.6 Blood Gas HCO3 18 mmol/L (22-26) Blood Gas Base Excess -6.1 mmol/L (-2-2) Blood Gas Oxygen Saturation 97 % (90-100) Arterial Blood pH 7.36 (7.380-7.420) Arterial Blood Partial 34 mmHg (38-42) Pressure CO2 Arterial Blood Partial 270 mmHg Pressure O2 (61-120) Arterial Blood Oxygen Content 14.8 Vol % (12.0-20.0) Arterial Blood 1.5 % (0-4) Carboxyhemoglobin Arterial Blood Methemoglobin 1.3 % (0-2) Blood Gas Hemoglobin 10.4 G/DL (12.0-16.0) Blood Gas Inspired Oxygen 60 % Imaging Last 24 hours Impressions Lumbar Spine X-Ray 09/29/16 0000 Signed Impressions: Service Date/Time: Thursday, September 29, 2016 04:38 - CONCLUSION: Fixation of L3 compression fracture or. Hardware is grossly intact. Ranjit Herzog MD Lumbar Spine MRI 09/28/162146 Signed Impressions: Service Date/Time: Wednesday, September 28, 2016 22:37 - CONCLUSION: Prominent compression deformity with posterior displacement of the L3 vertebral body. The thecal sac is markedly narrowed. There is an epidural hematoma posteriorly L3 extending down to the L4-5 disc space. Non displaced compression deformity of T12. Ranjit Herzog MD Lumbar Spine CT 09/28/162146 Signed Impressions: Service Date/Time: Wednesday, September 28, 2016 22:25 - CONCLUSION: Severe unstable fracture of the L3 level involving the anterior and posterior aspects of the L3 vertebral body and the base of the spinous process and the left lamina and left inferior facet. There is very prominent posterior retropulsion of the posterior superior aspect of the L3 vertebral body creating severe stenosis. Kenneth Ortez MD Exam LICENSED MORTICIAN awake,alert Hemodynamic/Cardiac stable Pulmonary/Respiratory clear bs Abdomen/GI Nutrition soft,benign Hematologic hgb 8.9 Urinary Catheter Assessment Urinary Catheter: Yes Assessment to: Continue Suazo insert reason: Surgical/Invasive Proced Assessment and Plan Plan s/p decompression L3 fx with stabilization T12 stable fracture pubic ramus fx stable overall neuro intact ortho consult keep in ICU until cleared by NS d/w ortho DVT prophylaxis Peri Mendoza MD Sep 29, 2016 12:50
--- NOTE | 2016-09-29 15:43 | PD.OP ---
Operative Report Date of Surgery: Sep 29, 2016 Preoperative Diagnosis: L3 burst fracture Postoperative Diagnosis: L3 burst fracture Procedure: open reduction of L3 fracture, L2 to L4 posterolateral fusion and autologous bone graft, L2 to L4 segmental instrumental fixation using transpedicular screws and rods, microsurgical dissection Anesthesia: general Surgeon: Jer Aviles Channel Rebuilder(s): Júnior Operation and Findings: NDICATIONS FOR THE SURGICAL PROCEDURE Ms Zapata is a 51 year-old female who presented with severe mechanical back pain related to a L3 spinal fracture after falling off a ladder. She had a severe burst fracture of L3, very unstable. A surgical decompression with reduction of the fracture and arthrodhesis were indicated as the most appropriate treatment. The [id number] details of the procedure, indications, alternatives, risks and potential complications were fully discussed with the patient. The patient fully understood. All questions were answered. No guarantees were given. The patient voiced requesting the procedure and provided informed consents. The patient had been offered the alternative of delaying the procedure and continuing with nonsurgical management. DETAILS OF THE SURGICAL PROCEDURE Prior to the procedure, the surgical incision was marked, and the procedure, risks, and potential complications revisited with the patient. Placement of electrodes for intraoperative neurophysiological monitoring was completed. The patient was taken to the operative room, and following induction of general anesthesia, endotracheal intubation was performed. A Suazo catheter, bilateral ANTWON hose and sequential compression devices were placed and kept throughout the procedure. The patient was positioned prone, over a Alhaji table over a René frame. All pressure in the preoperative surgical holding room points were carefully padded with eggcrate and gel mattress. The eyes were tapped shut after ointment was applied by the anesthesiologist to prevent corneal abrasion. A Jeanna hugger was placed over the expossed lower body to maintain control of the core body temperature. The electrophysiological team placed the needles and electrodes in their proper location and baseline SSEP's and motor evoked potentials were registered prior and following the positioning. The entrance to each pedicles was marked using a C arm. The lumbar region was prepped and draped in the usual sterile fashion. The surgical procedure was performed in several steps as follow: SURGICAL APPROACH Once the patient was positioned, a localizing cross-table lateral x-ray was performed with a C-arm. Two paramedian small incisions were outlined on the skin approximately 3cm from the midline. The skin incisions were made with a # 10 blade. Small bleeders were controlled with the cautery. The dissection was then carried out into deper planes and through the thoracolumbar fascia with a Bovie. The intermuscular septum was identified and the myscles were blunted dissected along the septum. The facets and transverse process of L2, L3, L4 were exposed and the proper anatomical landmarks were identified. A microsurgical self-retaining retractor was placed on the incision, and a localizing lateralizing cross-table x-ray was performed with an instrument underneath a lamina of the lumbar spine. There was a bilateral pars defect with gross instability of the bony structures. INSTRUMENTAL FIXATION At this point in the procedure, placement of bilateral transpedicular screws was necessary for stabilization of the spine. Initially, the entry point for the screw was selected anatomically at the junction of the facet, with the transverse process, and the pars interarticularis at L2, L3, L4. This was started with a Giamshetti needle, followed by the use of an freitas wire, and then a tap was used to create the threads for the screws. Finally bilateral transpedicular screws were carefully placed bilaterally at L2, L3 on the right, and L5 under fluoroscopic visualization. An appropriate purchase was achieved with all screws. The position of each screw was assessed anatomically with an AP , lateral, oblique Xrays. An intraoperative scan view of the spine was then performed using the iso-centric c-arm. Each screw was then assessed electrophysiologically with a nerve stimulator. SURGICAL DECOMPRESSION/open reduction of the fracture There was significant mass effect with compression of the neural structures by retropulsed bone fragments and tumor. In order to relieve neural compression, it was necessary to perform a decompressive laminectomy, with decompression of the spinal canal and nerve root At this point of the procedure the operative microscope was draped in the usual sterile fashion and brought to the field. The rest of the surgical procedure was performed using microdissection technique with the exception of the closure. Under the operating microscope, a decompressive laminectomy was carried out at L3 as follow: The laminae, base of the spinous processes and facets were carefully drilled exposing the ligamentum flavum. The facets were abnormal with severe facet arthropathy, vacuum facets, and mass effect over the neural structures. A broad protusion of bone and tumor was causing compression of the neural structures and exiting L4 and L5 nerve roots. A near complete facetectomy was necessary the right in order to approach the anterior epidural space. The ligamentum flavum appeared hypertrophic, resulting on mass effect on the dorsal surface of the neural structures. The superior free border of the ligamentum flavum was elevated with a ligament dissector and the ligamentum flavum was removed with a 3 and 4 mm Kerrison forceps. The ligament was very adherent to the dural sac and during the dissection, ans extreme care was taken during the dissection. The exiting nerve roots were identified, and a wide foraminotomy was performed with a Kerrison in their trajectory towards the neural foramenat both levels. Epidural veins located laterally to the dural sac were coagulated with the bipolar cautery, and then incised using microscissors. Gentle medial retraction of the dural sac allowed me to expose the vertebral body L5. Then, the posterior retrp[ulsed bones were impacted into the vertebral body L3 under continuous xray visualization. Upon completion , an excellent decompression of the neural structures was achieved. Posterolateral fusion Then, the lateral gutters of the spine, facets and transverse processes were carefully decorticated with a TPS drill in preparation for the posterior lateral fusion. The incision was thoroughly irrigated with antibiotic solution. The posterolateral fusion was performed by carefully packing the gutters of the spine with a autograft bone graft and demineralized bone matrix Completion of the Procedure The rods were brought to the field. Sequential application of the cap was achieved which allowed for further correction of the kyphosis. Final tightening of all screws was achieved with a torque wrench. The incision was thoroughly irrigated with several liters of antibiotic solution. The decompression was reassessed with an nerve hook and found to be appropriate. Seven mm Alhaji-Ratliff drain was left on the epidural space and was then externalized through a separate stab incision. The incision was then closed in layers. 0 Vicryl with interrupted sutures were used to close the thoracolumbar fascia. The superficial fascia was closed with 0 Vicryl sutures. Three-0 Vicryl was used to close the subcutaneous tissue. The skin was closed with 4-0 running subcuticular Vicryl. Dermabond was applied to the skin. The drain was secured 3-0 nylon. At the end of the procedure the sponges, needles, and instrument counts were all correct. Estimated blood loss was 1200 to 1300 cc's.She received autologous blood via the cell saver. No complications occurred. The patient received prophylactic antibiotics. The patient was then extubated and transferred to the recovery room in stable condition. The entire procedure was performed using electrophysiological monitor of the electromyogram, evoked potential and sphincters. No intraoperative abnormalities were detected. Jer Aviles MD Sep 29, 2016 15:43
--- NOTE | 2016-09-29 20:12 | PD.CONS ---
(Errol Fletcher) HPI Service Orthopedic Surgeons Consult Requested By Reason for Consult Right Inferior Pubic Rami Fracture Primary Care Physician Non-Staff Admission Diagnosis L3 burst column fracture, right pelvic rami fractue Diagnoses: Chief Complaint: Right pelvic pain (Errol Fletcher) History of Present Illness Patient is s 51-year-old female who sustained multiple injuries when she fell from a ladder. She was taken to [facility] where she was evaluated , then transferred to [facility]. CT scans which were done at [facility] and were reviewed with Dr. Mak Gonzales, which demonstrates L3 burst fracture with compression of cord and right inferior pubic rami fracture. Patient was admitted to the hospital. Orthopedic consultation was obtained. (Errol Fletcher) Past Family Social History Allergies: Coded Allergies: No Known Allergies (Unverified , 09/28/16) Active Ordered Medications Current Medications Medications (Trade) Dose Ordered Sig/Luz Marina Route Start Time Stop Time Status Last Admin (Zofran Inj) 4 mg Q6H PRN IV 09/28/16 22:30 (Colace) 100 mg BID PO 09/29/16 09:00 09/29/16 08:49 (Percocet 5-325 Mg) 1 tab Q4H PRN PO 09/28/16 22:30 (Robaxin) 500 mg Q8HR PO 09/29/16 06:00 09/29/16 13:34 (NS Flush) 2 ml UNSCH PRN IVF 09/29/16 01:45 (NS Flush) 2 ml BID IVF 09/29/16 09:00 09/29/16 08:54 (Protonix Inj) 40 mg DAILY IVP 09/29/16 09:00 09/29/16 08:49 (Morphine Inj) 2 mg Q2H PRN IV PUSH 09/29/16 01:45 (Morphine Inj) 4 mg Q2H PRN IV PUSH 09/29/16 01:45 (Tylenol) 650 mg Q4H PRN PO 09/29/16 01:45 (Narcan Inj) 0.4 mg UNSCH PRN IV 09/29/16 01:45 (Benadryl Inj) 25 mg Q6H PRN IV 09/29/16 01:45 (Dilaudid POWER PLANT SUPERVISOR Inj) 6 mg UNSCH IV 09/29/16 01:45 09/29/16 14:24 POWER PLANT SUPERVISOR Dosage Infused (Pha) 1 1 Q8HR .XX 09/29/16 06:00 09/29/16 14:00 (Ancef 2 Gm Premix) 50 ml @ 100 mls/hr Q8HR IV 09/29/16 06:00 09/29/16 22:29 09/29/16 13:35 Miscellaneous Information ALL NURSING DEPARTME... UNSCH PRN .XX 09/29/16 06:15 09/30/16 06:14 (Lactulose Liq) 30 ml DAILY PO 09/29/16 09:00 09/29/16 08:49 Reported Meds & Active Scripts Active Reported Xanax (Alprazolam) 1 Mg Tab 1 Mg PO Q8H PRN Celexa (Citalopram Hydrobromide) 40 Mg Tab 40 Mg PO DAILY (Errol Fletcher) Physical Exam Vital Signs Vital Signs Date Time Temp Pulse Resp B/P Pulse Ox O2 Delivery O2 Flow Rate FiO2 09/29/16 18:00 78 09/29/16 16:00 97.8 81 10 130/79 96 09/29/16 16:00 90 09/29/16 14:53 14 09/29/16 14:24 16 09/29/16 14:00 74 09/29/16 14:00 16 09/29/16 12:00 75 09/29/16 12:00 97.9 96 29 109/60 99 09/29/16 10:54 14 09/29/16 10:00 14 09/29/16 10:00 74 09/29/16 08:00 96 Nasal Cannula 4.00 09/29/16 08:00 75 09/29/16 08:00 97.8 66 14 102/68 96 09/29/16 07:31 94 Nasal Cannula 3.00 09/29/16 06:30 62 15 97/59 94 Nasal Cannula 2 09/29/16 06:25 98.2 66 13 89/60 92 09/29/16 06:22 16 09/29/16 06:15 62 15 94/59 94 Nasal Cannula 2 09/29/16 06:00 67 15 104/63 95 Nasal Cannula 2 09/29/16 05:45 75 15 96/57 94 Nasal Cannula 2 09/29/16 05:45 75 15 96/57 94 Nasal Cannula 2 09/29/16 05:37 97.8 79 15 102/61 96 Nasal Cannula 2 09/28/16 23:00 80 16 146/78 97 Room Air 09/28/16 21:30 98.1 77 18 139/82 99 Physical Exam Right Pelvis skin intact no ecchymosis noted tenderness to the lateral and groin area with direct palpation tenderness with movement of leg denies numbness or tingling 2+ dorsalis pedis pulses distally motor, neuro, and sensory intact Left Pelvis skin intact no tenderness with direct palpation or movement of leg denies numbness or tingling 2+ dorsalis pedis pulses distally motor, neuro, and sensory intact Laboratory Laboratory Tests Test 09/29/16 09/29/16 09/29/16 09/29/16 01:25 01:26 03:50 05:56 White Blood Count 8.7 11.9 Red Blood Count 3.64 2.71 Hemoglobin 12.1 8.9 Hematocrit 35.7 27.1 Mean Corpuscular Volume 98.1 100.0 Mean Corpuscular Hemoglobin 33.2 32.9 Mean Corpuscular Hemoglobin 33.9 32.9 Concent Red Cell Distribution Width 12.5 12.3 Platelet Count 265 215 Mean Platelet Volume 7.2 7.6 Blood Type O NEGATIVE O NEGATIVE Antibody Screen NEGATIVE Crossmatch Leukocyte-Reduced Red Blood Cells Blood Bank Comment Blood Gas Patient Temperature 98.6 Blood Gas HCO3 18 Blood Gas Base Excess -6.1 Blood Gas Oxygen Saturation 97 Arterial Blood pH 7.36 Arterial Blood Partial 34 Pressure CO2 Arterial Blood Partial 270 Pressure O2 Arterial Blood Oxygen Content 14.8 Arterial Blood 1.5 Carboxyhemoglobin Arterial Blood Methemoglobin 1.3 Blood Gas Hemoglobin 10.4 Blood Gas Inspired Oxygen 60 Neutrophils (%) (Auto) 92.1 Lymphocytes (%) (Auto) 5.1 Monocytes (%) (Auto) 2.7 Eosinophils (%) (Auto) 0.0 Basophils (%) (Auto) 0.1 Neutrophils # (Auto) 11.0 Lymphocytes # (Auto) 0.6 Monocytes # (Auto) 0.3 Eosinophils # (Auto) 0.0 Basophils # (Auto) 0.0 CBC Comment DIFF FINAL Differential Comment Sodium Level 139 Potassium Level 3.8 Chloride Level 107 Carbon Dioxide Level 21.5 Anion Gap 11 Blood Urea Nitrogen 11 Creatinine 0.78 Estimat Glomerular Filtration 78 Rate Random Glucose 157 Calcium Level 6.7 Protein Corrected Calcium 8.0 Total Bilirubin 0.3 Direct Bilirubin 0.1 Indirect Bilirubin 0.2 Aspartate Amino Transf 28 (AST/SGOT) Alanine Aminotransferase 22 (ALT/SGPT) Alkaline Phosphatase 54 Total Protein 4.6 Albumin 2.2 Test 09/29/16 06:20 Nasal Screen MRSA (PCR) MRSA NOT DETECTED (Errol Fletcher) Result Diagram: 09/29/16 [id number]/[id number] Imaging CT scan from [facility] demonstrates a right inferior pubic rami fracture. (Errol Fletcher) Assessment & Plan Problem List: (1) Fracture of right inferior pubic ramus Assessment and Plan Patient's condition was discussed, her options of treatment was discussed. Reviewed CT scan finding with patient and family in detail. Recommend conservative approach at this time. Physical therapy - weight bearing as tolerated Advised to let her symptoms guide her as to how weight to put through her RLE. Advised that these kind of fractures may take up to [address] Gonzales spoke with patient and family. Patient asked appropriate questions. All questions answered. At this time we will sign off. If there are any questions please contact us. ( Errol Fletcher) Assessment and Plan Attending Statement: The patient was examined with Mr Fletcher. The CT of the pelvis, not the Spine was reviewed. Conservative management of pelvis. Refer all spine management to neurosurgeons. (Mak Gonzales MD) Errol Fletcher Sep 29, 2016 20:12 Mak Gonzales MD Sep 29, 2016 20:22
[2016-09-30] VITALS (14 sets, daily range): BP systolic 96–115; BP diastolic 56–78; PULSE 76–92; RESP 13–28; TEMP 98.2–98.7; O2SAT 93–99
[2016-09-30] MEDS: HYDROmorphone HCL PCA 6 MG/30 ML IV SCH ×3 (02:42→21:26)
[2016-09-30 04:55] LABS: BASOPHIL % 0.1 % (0.0-2.0); HEMATOCRIT 23.1 % (35.0-46.0); HEMO FLAGS DIFF FINAL; LYMPHOCYTE # 2.4 TH/MM3 (1.0-4.8); MEAN CELL VOLUME 100.1 FL (80.0-100.0); MEAN CORPUSCULAR HEMOGLOBIN 33.2 PG (27.0-34.0); MEAN CORPUSCULAR HGB CONC 33.2 % (32.0-36.0); MONO % 9.6 % (0.0-8.0); NEUT % 69.3 % (16.0-70.0); PLATELET COUNT 189 TH/MM3 (150-450); RED BLOOD COUNT 2.31 MIL/MM3 (4.00-5.30); RED CELL DISTRIBUTION WIDTH 12.2 % (11.6-17.2); WHITE BLOOD COUNT 11.6 TH/MM3 (4.0-11.0)
[2016-09-30 05:58] LABS: BICARBONATE 27.8 MEQ/L (21.0-32.0); POTASSIUM 3.9 MEQ/L (3.5-5.1)
[2016-09-30] MEDS: PCA - TOTAL MG DILAUDID DELIVERED PER SHIFT SCH ×3 (06:00→22:00)
[2016-09-30] MEDS: METHOCARBAMOL 500 MG TAB PO SCH ×3 (06:27→21:42)
[2016-09-30 07:19] LABS: CALCIUM-PROTEIN CORRECTED 8.1 MG/DL (8.5-10.1)
[2016-09-30] MEDS: SODIUM CHLORIDE 0.9% FLUSH 5 ML FLUSH IVF SCH ×2 (09:00→21:00)
[2016-09-30] MEDS: DOCUSATE SODIUM 100 MG CAP PO SCH ×2 (09:36→21:42)
[2016-09-30] MEDS: LACTULOSE SYRUP 20 GM/30 ML CUP PO SCH (09:36)
[2016-09-30] MEDS: ENOXAPARIN SODIUM 30 MG/0.3 ML SYRINGE SQ SCH ×2 (10:34→21:55)
[2016-09-30] MEDS: CITALOPRAM HYDROBROMIDE 40 MG TAB PO SCH (11:20)
--- NOTE | 2016-09-30 11:44 | PD.HHIRCNE ---
Patient History Record/History Review Reason for Referral: The patient is a 51 year old right handed female status post traumatic injury sustained on 09/29/2016. She was climbing a ladder with a friend trimming a tree and she fell. She sustained an unstable L3 fracture requiring emergent decompression, stable T12 fracture and pubic fracture. Shedid not sustain concussion during this event, recalling the entire incident. She is now referred for baseline neurobehavioral status examination per trauma protocol to assess cognitive, behavioral and emotional aspects of the injury and to provide treatment recommendations. Neuropsych Precautions: To be determined. Past Surgical/Medical History Past Surgery: Yes Major surgery in last 100 days: Yes Hx Anesthesia Reactions: No Hx Orthopedic Surgery: Yes (left knee) Hx Gynecologic Surgery: No (total hysterectomy) Hx Falls: Yes Hx Inflammatory Bowel Disease: Yes (IBS, ulcerative colitis, diverticulitis) ?: Not Hx of Eye Probl: No Hx Anxiety: Yes Hx Depression: Yes Hx Blood Dyscrasias: No Hx of MDRO: No Hx of Body/Medical Devices: No Blood Transfusion History Will receive Blood /Blood prod: Yes Hx Blood Transfusions: No Medication Active Medications Citalopram Hydrobromide (CeleXA) 40 mg DAILY PO Last administered on 09/30/16 11 :20; Admin Dose 40 MG; Start 09/30/16 at 10:00 Enoxaparin Sodium (Lovenox Inj) 30 mg Q12H SQ Last administered on 09/30/16 10: 34; Admin Dose 30 MG; Start 09/30/16 at 11:00 Mental Status Assessment Orientation: oriented to Self, oriented to Place Mental Status: WFL: Thought processing, Language/Interactions, Attention, Learning/Memory, Problem-Solving Observation The patient is alert and oriented to person, place, time and circumstances surrounding the reason for hospitalization. In terms of attention skills, the patient was able to remain on task and remember basic and complex instructions. In terms of memory functioning, the patient was able to demonstrate adequate carryover of information. The patient initiated spontaneous conversation. Speech was characterized by adequate prosody, grammar , articulation, volume and rate. Basic naming skills were intact. Language repetition skills were intact. The patients comprehensions for basic one- and two-stage commands were intact. The patient appears to posses adequate insight and awareness into their situation and within the limits of this brief evaluation, adequate judgment. Impression Baseline neurocognitive status. Adjustment/Coping Assessment Adjustment/Coping: Moderate: Anxiety, Pain Observation The patients thought content was free from suicidal, homicidal or paranoid ideation, and the patients thought processes were logical and goal-directed. The patients mood was anxious, and the affect was worrisome. LTG Status: Deferred STG Status: Deferred Team Members: Neuropsychologist Behavior Assessment Agitation: Mild Treatment Engagement: Average Observation Behaviorally, the patient demonstrated no signs of agitation, impulsivity or disinhibition. There was no remarkable evidence of a formal thought disorder or psychosis. LTG - Status: Deferred STG Status: Deferred Team Members: Neuropsychologist Diagnosis/Discharge Plan Impression The patient sustained a spinal injury during a fall, and she has a premorbid history of anxiety disorder. Her home meds were restarted. Diagnosis: (1) Generalized anxiety disorder Status: Acute Maximizing acute care outcome It is recommended that the patient be monitored for emergent anxiety issues as the medical condition evolves. This patients emotional challenges may limit their rehabilitation potential going forward, and these challenges will require specialized therapeutic skills to maximize outcome. Discharge Planning Anticipated Problems Ongoing areas of concern will include reactive anxiety which is expected to improve with time and treatment. Treatment Plan This clinician will continue to follow with you throughout the course of this patients rehabilitation treatment, and I will be available to meet with the patients family/support system to facilitate their understanding and the ongoing care of their family member. The goals of neuropsychological intervention shall be both educational and supportive to the family/support system as is deemed clinically appropriate. Discharge Needs To be determined. Thank you Thank you for the opportunity to assist in this patients care. Phillip Gurrola, Ph.D., ABPP Board Certified in Clinical Neuropsychology [place] [employer] [place] Licensed Psychologist #[id number] Phillip Gurrola PhD Sep 30, 2016 11:44
--- NOTE | 2016-09-30 11:55 | HHI.CCPN ---
Subjective Remarks/Hospital Course 51 y/o woman was helping a neighbor trim a tree when she fell approximately 10 feet from a latter to ground. Immediate back pain. Scans and MRI revealed L3 burst fracture with retropulsion of fragments and severe thecal sac compression. An epidural hematoma was noted as well. Distal neurological function was grossly intact in the ED. She went directly to the OR for decompression and reconstruction of lumbar spine. Additional injuries include left inferior pubic rami fracture and T12 compression injury. 09/30: Alert, breathing comfortably. Objective Vital Signs Date Time Temp Pulse Resp B/P Pulse Ox O2 Delivery O2 Flow Rate FiO2 09/30/16 10:00 86 09/30/16 08:00 98.3 26 110/78 96 09/30/16 07:00 Nasal Cannula 4.00 Intake and Output 09/29/16 09/29/16 09/30/16 08:00 16:00 00:00 Intake Total 5251 ml 1422 ml 575 ml Output Total 2510 ml 540 ml 705 ml Balance 2741 ml 882 ml -130 ml Result Diagram: 09/30/16 0346 09/30/[address] and MRI lumbar spine Outside films from [facility]. Objective Remarks Head: Atraumatic. Neck: Supple, airway unobstructed. No stridor. Lungs: Clear, comfortable pattern. No adventitious sounds. Heart: NL S1S2, bradycardia, no JVD. RRR. Abdomen: Soft, nontender, no guarding, BS active. Extremities: Warm, well perfused. No edema or cyanosis. Neuro: Alert, O X 3. Conversant. Moves legs with 5/5 strength. Toes down shantanu. KENYA. A/P Assessment and Plan Assessment: 1. Fall from 10 feet a. L3 burst fracture with thecal sac compression. b. Left inferior pubic rami fracture by report from OSH. c. T12 compression injury, stable. Plan: 1. Neuro checks scheduled. 2. Maint iv fluid -> diet 3. Watch for urinary retention. 4. PT evaluation. 5. Protonix. 6. Hold chemical DVT px. 7. SCDs. 8. Continue trauma survey for possible associated injuries. Overall impression: Stable respiratory and hemodynamic function s/p reconstruction lumbar spine. Will sign off. Heber Jo MD Sep 30, 2016 11:55
--- NOTE | 2016-09-30 13:07 | HHI.CCPN ---
Subjective 24 Hour Review/Hospital Course 51 y..o female s/p fall,transfer form outside institution-L3 unstable fracture, which required emergent decompression,stable T12 fx,stable pubic fracture 09/30 stable,neuro intact,still c/o incisional pain Objective Vital Signs Date Time Temp Pulse Resp B/P Pulse Ox O2 Delivery O2 Flow Rate FiO2 09/30/16 12:24 20 09/30/16 12:00 90 09/30/16 12:00 98.2 115/65 94 09/30/16 07:00 Nasal Cannula 4.00 Intake and Output 09/29/16 09/29/16 09/30/16 08:00 16:00 00:00 Intake Total 5251 ml 1422 ml 575 ml Output Total 2510 ml 540 ml 705 ml Balance 2741 ml 882 ml -130 ml Result Diagram: 09/30/16 0346 09/30/16 0346 Exam BAIT PAINTER intact,GCS 15 Hemodynamic/Cardiac stable Pulmonary/Respiratory clear BS Abdomen/GI Nutrition soft,benign Hematologic hgb stable Urinary Catheter Assessment Urinary Catheter: No Vascular Central Line Catheter Vascular Central Line Catheter: No Assessment and Plan Plan s/p decompression L3 fx with stabilization T12 stable fracture pubic ramus fx stable overall neuro intact ortho consult-pelvis nonsurgical keep in ICU until cleared by NS DVT prophylaxis-approved by Peri Hendrix MD Sep 30, 2016 13:07
--- NOTE | 2016-09-30 13:54 | HHI.NSPN ---
(Aman Anders) History Chief Complaint: Back pain (Aman Anders) Interval History 09/29: This is a 51 year old female who presents today from [facility]. The patient had a fall from a ladder 8 to 10 feet and was found to have a burst fracture of the L3 lumbar spine with compression of the spinal cord. In addition she had a pubic rami fracture. The patient was accepted by Dr. Porras, on-call trauma surgeon for transfer. The patient has CT scan that showed retropulsion of the burst fracture into the spinal canal causing severe spinal stenosis with spinal cord compression. Neurosurgical consultation was requested. She underwent emergent ORIF L3 fracture with L2-L4 posterolateral fixation earlier this morning. 09/29: s/p ORIF L3 fracture, awake, alert, pain controlled on PARTS AND SERVICE MANAGER pump. moving lower extremities. 09/30: Patient complains of "a lot of back pain." She also is complaining of numbness to the legs which she relates to being on the bedside commode, no numbness prior to getting on the commode. Unable to have a bowel movement. ( Aman Anders) System Review Comments Respiratory: Denies any shortness of breath or productive cough. Cardiovascular: Denies any chest pain, palpitations or irregular heartbeat. Gastrointestinal: Constipation. Denies any abdominal pain, nausea, vomiting or bowel incontinence. Genitourinary: Denies any urinary incontinence. Musculoskeletal: Back pain. Denies any neck, arm or leg pain. Neurologic: Numbness to the thighs from sitting on the bedside commode per patient. Denies any headache, dizziness or tingling. (Aman Anders) Exam Results Vital Signs Date Time Temp Pulse Resp B/P Pulse Ox O2 Delivery O2 Flow Rate FiO2 09/30/16 12:24 20 09/30/16 12:00 90 09/30/16 12:00 98.2 115/65 94 09/30/16 07:00 Nasal Cannula 4.00 Intake and Output 09/29/16 09/29/16 09/30/16 08:00 16:00 00:00 Intake Total 5251 ml 1422 ml 575 ml Output Total 2510 ml 540 ml 705 ml Balance 2741 ml 882 ml -130 ml (Aman Anders) Physical Examination Respiratory: CTAB w/o W/R/R, equal excursion, non-laboured, on RA. Cardiovascular: S1S2 w/RRR w/o M/G/R. Musculoskeletal: In TLSO brace. Upper thoracolumbar spine NTTP but lower thoracolumbar spine TTP. Neuro: AA&O x3 Speech clear & appropriate Sensation intact to light touch to lower extremities Motor strength 5/5 BLE (Aman Anders) Lab, Micro, Other Results Allergies Coded Allergies Type Severity Reaction Last Updated Verified No Known Allergies 09/28/16 No Recent Impressions Lumbar Spine X-Ray 09/29/16 0000 Signed Impressions: Service Date/Time: Thursday, September 29, 2016 04:38 - CONCLUSION: Fixation of L3 compression fracture or. Hardware is grossly intact. Ranjit Herzog MD Lumbar Spine MRI 09/28/162146 Signed Impressions: Service Date/Time: Wednesday, September 28, 2016 22:37 - CONCLUSION: Prominent compression deformity with posterior displacement of the L3 vertebral body. The thecal sac is markedly narrowed. There is an epidural hematoma posteriorly L3 extending down to the L4-5 disc space. Non displaced compression deformity of T12. Ranjit Herzog MD Lumbar Spine CT 09/28/162146 Signed Impressions: Service Date/Time: Wednesday, September 28, 2016 22:25 - CONCLUSION: Severe unstable fracture of the L3 level involving the anterior and posterior aspects of the L3 vertebral body and the base of the spinous process and the left lamina and left inferior facet. There is very prominent posterior retropulsion of the posterior superior aspect of the L3 vertebral body creating severe stenosis. Kenneth Ortez MD //// 06:00 18:00 06:00 18:00 06:00 18:00 Intake Total 4451 ml 2222 ml 1257 ml Output Total 2510 ml 540 ml 1330 ml Balance 1941 ml 1682 ml -73 ml Intake Oral 700 ml 900 ml IV Total 1522 ml 357 ml Autotransfusion 251 ml Other 4200 ml Output Urine Total 400 ml 1220 ml Drainage Total 10 ml 140 ml 110 ml Estimated Blood Loss 1200 ml Other 1300 ml Laboratory Tests Test 09/29/16 09/29/16 09/29/16 09/29/16 01:25 01:26 03:50 05:56 White Blood Count 8.7 TH/MM3 11.9 TH/MM3 Red Blood Count 3.64 MIL/MM3 2.71 MIL/MM3 Hemoglobin 12.1 GM/DL 8.9 GM/DL Hematocrit 35.7 % 27.1 % Mean Corpuscular Volume 98.1 FL 100.0 FL Mean Corpuscular Hemoglobin 33.2 PG 32.9 PG Mean Corpuscular Hemoglobin 33.9 % 32.9 % Concent Red Cell Distribution Width 12.5 % 12.3 % Platelet Count 265 TH/MM3 215 TH/MM3 Mean Platelet Volume 7.2 FL 7.6 FL Blood Type O NEGATIVE O NEGATIVE Antibody Screen NEGATIVE Crossmatch Leukocyte-Reduced Red Blood Cells Blood Bank Comment Blood Gas Patient Temperature 98.6 Blood Gas HCO3 18 mmol/L Blood Gas Base Excess -6.1 mmol/L Blood Gas Oxygen Saturation 97 % Arterial Blood pH 7.36 Arterial Blood Partial 34 mmHg Pressure CO2 Arterial Blood Partial 270 mmHg Pressure O2 Arterial Blood Oxygen Content 14.8 Vol % Arterial Blood 1.5 % Carboxyhemoglobin Arterial Blood Methemoglobin 1.3 % Blood Gas Hemoglobin 10.4 G/DL Blood Gas Inspired Oxygen 60 % Neutrophils (%) (Auto) 92.1 % Lymphocytes (%) (Auto) 5.1 % Monocytes (%) (Auto) 2.7 % Eosinophils (%) (Auto) 0.0 % Basophils (%) (Auto) 0.1 % Neutrophils # (Auto) 11.0 TH/MM3 Lymphocytes # (Auto) 0.6 TH/MM3 Monocytes # (Auto) 0.3 TH/MM3 Eosinophils # (Auto) 0.0 TH/MM3 Basophils # (Auto) 0.0 TH/MM3 CBC Comment DIFF FINAL Differential Comment Sodium Level 139 MEQ/L Potassium Level 3.8 MEQ/L Chloride Level 107 MEQ/L Carbon Dioxide Level 21.5 MEQ/L Anion Gap 11 MEQ/L Blood Urea Nitrogen 11 MG/DL Creatinine 0.78 MG/DL Estimat Glomerular Filtration 78 ML/MIN Rate Random Glucose 157 MG/DL Calcium Level 6.7 MG/DL Protein Corrected Calcium 8.0 MG/DL Total Bilirubin 0.3 MG/DL Direct Bilirubin 0.1 MG/DL Indirect Bilirubin 0.2 MG/DL Aspartate Amino Transf 28 U/L (AST/SGOT) Alanine Aminotransferase 22 U/L (ALT/SGPT) Alkaline Phosphatase 54 U/L Total Protein 4.6 GM/DL Albumin 2.2 GM/DL Test 09/29/16 09/30/16 06:20 03:46 Nasal Screen MRSA (PCR) MRSA NOT DETECTED White Blood Count 11.6 TH/MM3 Red Blood Count 2.31 MIL/MM3 Hemoglobin 7.7 GM/DL Hematocrit 23.1 % Mean Corpuscular Volume 100.1 FL Mean Corpuscular Hemoglobin 33.2 PG Mean Corpuscular Hemoglobin 33.2 % Concent Red Cell Distribution Width 12.2 % Platelet Count 189 TH/MM3 Mean Platelet Volume 7.5 FL Neutrophils (%) (Auto) 69.3 % Lymphocytes (%) (Auto) 21.0 % Monocytes (%) (Auto) 9.6 % Eosinophils (%) (Auto) 0.0 % Basophils (%) (Auto) 0.1 % Neutrophils # (Auto) 8.0 TH/MM3 Lymphocytes # (Auto) 2.4 TH/MM3 Monocytes # (Auto) 1.1 TH/MM3 Eosinophils # (Auto) 0.0 TH/MM3 Basophils # (Auto) 0.0 TH/MM3 CBC Comment DIFF FINAL Differential Comment Sodium Level 136 MEQ/L Potassium Level 3.9 MEQ/L Chloride Level 102 MEQ/L Carbon Dioxide Level 27.8 MEQ/L Anion Gap 6 MEQ/L Blood Urea Nitrogen 10 MG/DL Creatinine 0.78 MG/DL Estimat Glomerular Filtration 78 ML/MIN Rate Random Glucose 113 MG/DL Calcium Level 7.4 MG/DL Protein Corrected Calcium 8.1 MG/DL Total Protein 5.8 GM/DL Vital Signs Date Time Temp Pulse Resp B/P Pulse Ox O2 Delivery O2 Flow Rate FiO2 09/30/16 12:24 20 09/30/16 12:00 90 09/30/16 12:00 98.2 88 28 115/65 94 09/30/16 10:00 86 09/30/16 08:00 98.3 85 26 110/78 96 09/30/16 08:00 92 09/30/16 07:00 98 Nasal Cannula 4.00 09/30/16 06:00 82 09/30/16 04:00 98.2 84 13 96/67 93 09/30/16 04:00 84 09/30/16 03:12 30 09/30/16 02:42 30 09/30/16 02:00 85 09/30/16 00:00 98.2 90 27 102/71 99 09/30/16 00:00 90 09/29/16 22:00 80 09/29/16 20:26 98 Nasal Cannula 2.00 09/29/16 20:00 98.1 97 31 154/69 94 09/29/16 20:00 92 09/29/16 19:00 98 Nasal Cannula 4.00 09/29/16 18:00 78 09/29/16 16:00 97.8 81 10 130/79 96 09/29/16 16:00 90 09/29/16 14:24 16 09/29/16 14:00 74 09/29/16 14:00 16 09/29/16 12:00 75 09/29/16 12:00 97.9 96 29 109/60 99 09/29/16 10:54 14 09/29/16 10:00 14 09/29/16 10:00 74 09/29/16 08:00 96 Nasal Cannula 4.00 09/29/16 08:00 75 09/29/16 08:00 97.8 66 14 102/68 96 09/29/16 07:31 94 Nasal Cannula 3.00 09/29/16 06:30 62 15 97/59 94 Nasal Cannula 2 09/29/16 06:25 98.2 66 13 89/60 92 09/29/16 06:22 16 09/29/16 06:15 62 15 94/59 94 Nasal Cannula 2 09/29/16 06:00 67 15 104/63 95 Nasal Cannula 2 09/29/16 05:45 75 15 96/57 94 Nasal Cannula 2 09/29/16 05:45 75 15 96/57 94 Nasal Cannula 2 09/29/16 05:37 97.8 79 15 102/61 96 Nasal Cannula 2 09/28/16 23:00 80 16 146/78 97 Room Air 09/28/16 21:30 98.1 77 18 139/82 99 (Chago,Aman E. GLUE MAKER) Medical Decision Making Impression and Plan Impression: 51 y/o female s/p ORIF L3 burst fracture, L2-L4 posterolateral fixation 09/29/16 Plan: Pain control with PARTS AND SERVICE MANAGER, Serial neuro checks in ISC, Mobilise OOB with assistance TLSO brace when OOB PT & OT eval & tx ANTWON hose & SCDs for DVT prophylaxis IS, nasotracheal suctioning Neb txs Monitor urine output, BUN & creatinine Serial blood glucose checks w/SSI for tight control Protonix for stress ulcer prophylaxis Monitor Hgb Critical care per Casket Inspector Patient is able to be transferred to a regular med/surg floor from NSGY's perspective. (Aman Anders) Attending Statement I have personally seen and examined the patient on the date of this note. Pertinent documentation and study results have been reviewed by the undersigned. I have personally developed the treatment plan and performed medical decision making. Agree with findings, exam, and treatment plan as noted above. Patient's dressing and incision are dry. She is getting up out of bed with a TLSO brace on. Persistent moderate back pain. Neurologic stable postoperative. Continue physical therapy, TLSO brace, decrease pain medications as tolerated ( Angel Luis Salinas MD) Aman Anders Sep 30, 2016 13:54 Angel Luis Salinas MD Sep 30, 2016 21:20
[2016-09-30] MEDS ORDERED: CALCIUM CARBONATE 500 MG CHEWABLE TAB CHEW PRN (16:00)
[2016-09-30] MEDS: FAMOTIDINE 20 MG TAB PO SCH (21:42)
[2016-10-01] VITALS (8 sets, daily range): BP systolic 97–117; BP diastolic 63–78; PULSE 74–96; RESP 10–22; TEMP 97.9–99.4; O2SAT 94–99
[2016-10-01] MEDS: METHOCARBAMOL 500 MG TAB PO SCH ×3 (06:00→21:26)
[2016-10-01] MEDS: PCA - TOTAL MG DILAUDID DELIVERED PER SHIFT SCH ×3 (06:00→21:28)
[2016-10-01] MEDS: DOCUSATE SODIUM 100 MG CAP PO SCH ×2 (08:30→21:26)
[2016-10-01] MEDS: CITALOPRAM HYDROBROMIDE 40 MG TAB PO SCH (08:31)
[2016-10-01] MEDS: oxyCODONE/ACETAMINOPHEN 5 MG/325 MG TAB PO PRN ×4 (08:31→21:30)
[2016-10-01] MEDS: LACTULOSE SYRUP 20 GM/30 ML CUP PO SCH (08:31)
[2016-10-01] MEDS: FAMOTIDINE 20 MG TAB PO SCH ×2 (08:32→21:27)
[2016-10-01] MEDS: SODIUM CHLORIDE 0.9% FLUSH 5 ML FLUSH IVF SCH ×2 (09:00→21:00)
--- NOTE | 2016-10-01 11:04 | HHI.NSPN ---
History Chief Complaint: Back pain Interval History 09/29: This is a 51 year old female who presents today from [facility]. The patient had a fall from a ladder 8 to 10 feet and was found to have a burst fracture of the L3 lumbar spine with compression of the spinal cord. In addition she had a pubic rami fracture. The patient was accepted by Dr. Porras, on-call trauma surgeon for transfer. The patient has CT scan that showed retropulsion of the burst fracture into the spinal canal causing severe spinal stenosis with spinal cord compression. Neurosurgical consultation was requested. She underwent emergent ORIF L3 fracture with L2-L4 posterolateral fixation earlier this morning. 09/29: s/p ORIF L3 fracture, awake, alert, pain controlled on COMPONENT ASSEMBLER SUPERVISOR pump. moving lower extremities. 09/30: Patient complains of "a lot of back pain." She also is complaining of numbness to the legs which she relates to being on the bedside commode, no numbness prior to getting on the commode. Unable to have a bowel movement. 10/01: Pt awake and alert. Complains of back pain. Pt states numbness in thighs all over when sitting on toilet. No incontinence. No radiculopathy in LEs. Review of Systems General: Negative for: fever, chills, insomnia Respiratory: Negative for: shortness of breath, cough, sputum Cardiovascular: Negative for: chest pain Gastrointestinal: Negative for: nausea, vomitting, diarrhea, constipation Exam Results Vital Signs Date Time Temp Pulse Resp B/P Pulse Ox O2 Delivery O2 Flow Rate FiO2 10/01/16 10:49 16 10/01/16 08:40 Nasal Cannula 2.00 10/01/16 08:00 99.0 83 103/64 95 Intake and Output 09/30/16 09/30/16 10/01/16 08:00 16:00 00:00 Intake Total 682 ml 900 ml 385 ml Output Total 625 ml 790 ml 820 ml Balance 57 ml 110 ml -435 ml Physical Examination Resp: CTA bilaterally Heart: NSR no murmurs Abd: Soft positive bs Skin: No cyanosis or erythema Muscle: Moves LEs with good 5/5 strength. Neuro: Pt awake and alert. Follows commands well. Speech clear and appropriate. Sensation intact to touch in LEs. Lab, Micro, Other Results Last Impressions Lumbar Spine X-Ray 09/29/16 0000 Signed Impressions: Service Date/Time: Thursday, September 29, 2016 04:38 - CONCLUSION: Fixation of L3 compression fracture or. Hardware is grossly intact. Ranjit Herzog MD Lumbar Spine MRI 09/28/162146 Signed Impressions: Service Date/Time: Wednesday, September 28, 2016 22:37 - CONCLUSION: Prominent compression deformity with posterior displacement of the L3 vertebral body. The thecal sac is markedly narrowed. There is an epidural hematoma posteriorly L3 extending down to the L4-5 disc space. Non displaced compression deformity of T12. Ranjit Herzog MD Lumbar Spine CT 09/28/162146 Signed Impressions: Service Date/Time: Wednesday, September 28, 2016 22:25 - CONCLUSION: Severe unstable fracture of the L3 level involving the anterior and posterior aspects of the L3 vertebral body and the base of the spinous process and the left lamina and left inferior facet. There is very prominent posterior retropulsion of the posterior superior aspect of the L3 vertebral body creating severe stenosis. Kenneth Ortez MD 09/30/16 09/30/16 10/01/16 15:00 23:00 07:00 Intake Total 900 ml 385 ml 242 ml Output Total 790 ml 820 ml 265 ml Balance 110 ml -435 ml -23 ml Intake Oral 800 ml 240 ml 100 ml IV Total 100 ml 145 ml 142 ml Output Urine Total 750 ml 800 ml 250 ml Drainage Total 40 ml 20 ml 15 ml # Bowel Movements 0 Medical Decision Making Impression and Plan A: 51 y/o FM s/p L3 Fx s/p ORIF. P: Continue with pain control. D/C COMPONENT ASSEMBLER SUPERVISOR continue with TLSO brace Continue with PT. Tereso Calderón Oct 01, 2016 11:04
[2016-10-01] MEDS: ENOXAPARIN SODIUM 30 MG/0.3 ML SYRINGE SQ SCH ×2 (11:23→23:02)
--- NOTE | 2016-10-01 12:50 | PD.NP.DS ---
Discharge Summary Reason for Referral: The patient is a 51 year old right handed female status post traumatic injury sustained on 09/29/2016. She was climbing a ladder with a friend trimming a tree and she fell. She sustained an unstable L3 fracture requiring emergent decompression, stable T12 fracture and pubic fracture. Shedid not sustain concussion during this event, recalling the entire incident. She is now referred for baseline neurobehavioral status examination per trauma protocol to assess cognitive, behavioral and emotional aspects of the injury and to provide treatment recommendations. She continued to have issues with pain management, but from a neurobehavioral standpoint she was stable, and as such was discharged from neuropsychology service. Past Medical History: Please refer to the patient's history and physical for information concerning the patient's past medical, surgical, and psychiatric histories. Education/Learning Hx: The patient completed 12 years of education. There is no report of learning difficulties, grade repetitions or behavioral difficulties. 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 The patient is . The patient lives in [place], [place]. Premorbid Cognitive, Emotional and Behavioral Status: Stable. The patient has high school education and a solid work history prior to this injury. The patient has prior psychiatric difficulties, as described above, that were medically treated during her hospital stay. Substance abuse history is unremarkable. Behavioral Reactions of Patient and Family/Support System: Stable. The patient s family is experiencing ongoing issues of adjustment given the nature of the injury, and this aspect of recovery will require ongoing monitoring. Emotional/Behavioral Status of Patient and Family/Support System: Stable. Pertinent issues, if appropriate to this patients clinical care, are described in detail above. Treatment Interventions: During the course of their acute care stay, this patient and their family/ support system were provided information concerning the neuropsychological aspects of the injury, education regarding course of recovery, and psychological support in the form of counseling with the person served and the family/support system as documented in the neuropsychology service progress notes, as deemed clinically appropriate. Current, Cognitive, Emotional and Behavioral Status: Stable. This patient has experienced a severe injury, and will be adjusting to significant cognitive, emotional and behavioral challenges going forward. Impression at Discharge: Generalized Anxiety Disorder, chronic. The above listed diagnoses are supported by the following clinical criteria: Generalized Anxiety Disorder. This patient reports a longstanding history of excessive anxiety and worry occurring more days than not for at least six months , about a number of events or activities, for which she is treated pharmacologically. The patient finds it difficulty to control her worry and her anxiety are associated with restlessness, fatigue, irritability and muscle tension. Her anxiety has caused her significant distress in her social areas of functioning. Status of Family/Support System Adjustment: Stable. The patients family/ support system will experience ongoing issues of adjustment given the nature of the injury, and this aspect of the patients recovery will require ongoing monitoring. Post Acute Recommendations: It is recommended that the patient continue to be monitored for emotional reactivity as they continue to be early in their course of recovery. This patients neuropathological challenges may limit their reintegration into work and family life going forward, and these challenges may require specialized therapeutic skills to maximize outcome. Thank you for the opportunity to assist in this patients care. Phillip Gurrola, Ph.D., ABPP Board Certified in Clinical Neuropsychology [place] [employer] [place] Licensed Psychologist #[id number] Phillip Gurrola PhD Oct 01, 2016 12:50
--- NOTE | 2016-10-01 17:23 | PD.CAR.PN ---
CVT Progress Note Subjective/Hospital Course: Patient with L3 burst fracture and propulsion into the canal after fall from a ladder Patient is doing well at this time Status post fusion and decompression of the spinal cord Good breath sounds in bilateral pulmonary expansion Patient is doing well with the TLSO brace and once pain is more controlled patient will be discharged She should still stay in the hospital for a few days considering limited mobility and severe pain associated with above-noted injuries Objective: Vital Signs Date Time Temp Pulse Resp B/P Pulse Ox O2 Delivery O2 Flow Rate FiO2 10/01/16 17:19 16 10/01/16 16:00 97.9 88 17 110/75 95 10/01/16 15:05 16 10/01/16 12:00 97.9 84 20 102/63 99 10/01/16 08:40 Nasal Cannula 2.00 10/01/16 08:00 99.0 83 18 103/64 95 10/01/16 04:00 98.8 74 10 97/65 94 10/01/16 04:00 74 10/01/16 02:00 79 10/01/16 00:00 98.2 94 22 117/63 94 10/01/16 00:00 94 09/30/16 22:00 84 09/30/16 21:56 23 09/30/16 21:26 27 09/30/16 20:08 96 Nasal Cannula 2.00 09/30/16 20:00 81 09/30/16 20:00 98.7 81 23 107/56 95 09/30/16 19:00 96 Nasal Cannula 2.00 09/30/16 18:46 85 09/30/16 18:00 87 Result Diagram: 09/30/16 0346 09/30/16 0346 Randal Porras MD Oct 01, 2016 17:22
[2016-10-02] MEDS: oxyCODONE/ACETAMINOPHEN 5 MG/325 MG TAB PO PRN ×5 (02:52→22:44)
[2016-10-02 04:38] VITALS: BP 116/72; PULSE 84; RESP 18; TEMP 98.5; O2SAT 95
[2016-10-02] MEDS: METHOCARBAMOL 500 MG TAB PO SCH ×3 (06:00→21:44)
[2016-10-02] MEDS: PCA - TOTAL MG DILAUDID DELIVERED PER SHIFT SCH ×3 (06:00→21:52)
[2016-10-02 08:00] VITALS: BP 123/60; PULSE 80; RESP 20; TEMP 99; O2SAT 96
[2016-10-02] MEDS: MORPHINE SULFATE 4 MG/ML INJ IV PUSH PRN ×2 (08:45→11:40)
[2016-10-02] MEDS: SODIUM CHLORIDE 0.9% FLUSH 5 ML FLUSH IVF SCH ×2 (08:48→21:00)
[2016-10-02] MEDS: LACTULOSE SYRUP 20 GM/30 ML CUP PO SCH (08:48)
[2016-10-02] MEDS: FAMOTIDINE 20 MG TAB PO SCH ×2 (08:48→21:44)
[2016-10-02] MEDS: DOCUSATE SODIUM 100 MG CAP PO SCH ×2 (08:48→21:44)
[2016-10-02] MEDS: CITALOPRAM HYDROBROMIDE 40 MG TAB PO SCH (08:48)
[2016-10-02] MEDS: ENOXAPARIN SODIUM 30 MG/0.3 ML SYRINGE SQ SCH ×2 (11:31→22:43)
--- NOTE | 2016-10-02 11:35 | PD.CAR.PN ---
CVT Progress Note Subjective/Hospital Course: Patient with L3 burst fracture and propulsion into the canal after fall from a ladder Patient is doing well at this time Status post fusion and decompression of the spinal cord Good breath sounds in bilateral pulmonary expansion Patient is doing well with the TLSO brace and once pain is more controlled patient will be discharged She should still stay in the hospital for a few days considering limited mobility and severe pain associated with above-noted injuries 10/02/16 Patient doing much better at this time Moving better around the bed then out of bed with brace Patient will be ready for discharge tomorrow and she states that she has all the supplies at home because she was taking care of her elderly parents prior to this so there are wheelchairs crutches and walkers available Pain medicine adjusted and patient will be discharged tomorrow if okay with neurosurgery Objective: Vital Signs Date Time Temp Pulse Resp B/P Pulse Ox O2 Delivery O2 Flow Rate FiO2 10/02/16 08:42 Room Air 10/02/16 08:00 99.0 80 20 123/60 96 10/02/16 04:38 98.5 84 18 116/72 95 10/01/16 23:45 99.4 96 18 117/78 94 10/01/16 20:25 98.4 89 19 108/75 98 10/01/16 17:19 16 10/01/16 16:00 97.9 88 17 110/75 95 10/01/16 15:05 16 10/01/16 12:00 97.9 84 20 102/63 99 Result Diagram: 09/30/16 0346 09/30/16 0346 Randal Porras MD Oct 02, 2016 11:35
[2016-10-02 12:10] VITALS: BP 118/76; PULSE 72; RESP 16; TEMP 99.5; O2SAT 100
[2016-10-02] MEDS ORDERED: DOCU1CAP39 PO (12:57)
[2016-10-02] MEDS ORDERED: MILKSUS PO (12:57)
--- NOTE | 2016-10-02 12:58 | HHI.FF ---
Face to Face Verification Diagnosis: (1) Fall on and from ladder causing accidental injury (2) Fracture of right inferior pubic ramus Physical Therapy Order: Evaluate and Treat, Improve ambulation, Strength and gait training Home Health Nursing Order: Medical education Signs/symptoms of disease process Medication education-adverse effect Nursing assessment with vital signs I have seen patient Marianne Zapata on 10/02/16. My clinical findings support the need for the requested home health care services because: Ltd mobility - disease progression Deconditioned w/ increased weakness Limited ability to care for self I certify that my clinical findings support that this patient is homebound because: Post-op weakness Unsteady gait/balance Unsafe to leave home unassisted [id number] bed/chair Unable to use public transportation Farzaneh Benitez Oct 02, 2016 12:58
--- NOTE | 2016-10-02 14:46 | HHI.PR ---
Progress Notes/Response to Tx Premorbid psychological status Premorbid Cognitive, Emotional and Behavioral Status: Stable. The patient has high school education and a solid work history prior to this injury. The patient has prior psychiatric difficulties, as described above, that were medically treated during her hospital stay. Substance abuse history is unremarkable. Behavioral Reactions of Patient and Family/Support System: Stable. The patient s family is experiencing ongoing issues of adjustment given the nature of the injury, and this aspect of recovery will require ongoing monitoring. Emotional/Behavioral Status of Patient and Family/Support System: Stable. Pertinent issues, if appropriate to this patients clinical care, are described in detail above. Diagnosis: (1) Generalized anxiety disorder Status: Acute Progress Note Narrative Patient Jemima Wood PhD Oct 02, 2016 14:46
[2016-10-02] MEDS ORDERED: fentaNYL 50 MCG/HR PATCH T-DERMAL SCH (15:00)
[2016-10-02] MEDS ORDERED: WALKER WHEELS/F1 MIS (15:37)
[2016-10-02 16:00] VITALS: BP 111/73; PULSE 68; RESP 16; TEMP 99.3; O2SAT 97
--- NOTE | 2016-10-02 16:26 | HHI.NSPN ---
Note Status Status: Progress Note Interval History Interval History This is a 51 year old female who presents today from [facility]. The patient had a fall from a ladder 8 to 10 feet and was found to have a burst fracture of the L3 lumbar spine with compression of the spinal cord. In addition she had a pubic rami fracture. The patient was accepted by Dr. Porras, on-call trauma surgeon for transfer. The patient has CT scan that showed retropulsion of the burst fracture into the spinal canal causing severe spinal stenosis with spinal cord compression. Neurosurgical consultation was requested. She underwent emergent ORIF L3 fracture with L2-L4 posterolateral fixation earlier this morning. 7: s/p ORIF L3 fracture, awake, alert, pain controlled on COLLECTIONS DIRECTOR pump. moving lower extremities. 10/02: POD 4, transferring OOB to chair, moderate surgical pain when moved. stable paresthesias in thighs, this improves when laying down. Labs, Micro, & Vital Signs Results Date Time Temp Pulse Resp B/P Pulse Ox O2 Delivery O2 Flow Rate FiO2 10/02/16 12:10 99.5 72 16 118/76 100 10/02/16 08:42 Room Air 10/02/16 08:00 99.0 80 20 123/60 96 10/02/16 04:38 98.5 84 18 116/72 95 10/01/16 23:45 99.4 96 18 117/78 94 10/01/16 20:25 98.4 89 19 108/75 98 10/01/16 17:19 16 10/02/16 07:00 Intake Total 600 ml Output Total 10 ml Balance 590 ml Constitutional Vital Signs Date Time Temp Pulse Resp B/P Pulse Ox O2 Delivery O2 Flow Rate FiO2 10/02/16 12:10 99.5 72 16 118/76 100 10/02/16 08:42 Room Air 10/02/16 08:00 99.0 80 20 123/60 96 10/02/16 04:38 98.5 84 18 116/72 95 10/01/16 23:45 99.4 96 18 117/78 94 10/01/16 20:25 98.4 89 19 108/75 98 10/01/16 17:19 16 10/02/16 07:00 Intake Total 600 ml Output Total 10 ml Balance 590 ml Review of Systems/Exam Exam Ms. Zapata is alert. Speech is fluent, conversing well. Sitting up in chair with TLSO brace Cranial nerve examination: pupils equal, round and reactive to light. Motor: moving lower extremities off the bed, 5/5 plantarflexion and dorsiflexion Sensory examination is intact to light touch in both lower extremities. bilateral plantar flexion response. No ankle clonus. Medications Current Medications Current Medications Medications (Trade) Dose Ordered Sig/Luz Marina Route PRN Reason Start Time Stop Time Status Last Admin Dose Admin Ondansetron HCl (Zofran Inj) 4 mg Q6H PRN IV NAUSEA OR VOMITING 09/28/16 22:30 Docusate Sodium (Colace) 100 mg BID PO 09/29/16 09:00 10/02/16 08:48 Oxycodone/ Acetaminophen (Percocet 5-325 Mg) 1 tab Q4H PRN PO PAIN SCALE 3 TO 5 09/28/16 22:30 10/02/16 14:22 Methocarbamol (Robaxin) 500 mg Q8HR PO 09/29/16 06:00 10/02/16 14:21 IV Flush (NS Flush) 2 ml UNSCH PRN IVF FLUSH AFTER USING IV ACCESS 09/29/16 01:45 IV Flush (NS Flush) 2 ml BID IVF 09/29/16 09:00 10/02/16 08:48 Morphine Sulfate (Morphine Inj) 2 mg Q2H PRN IV PUSH PAIN SCALE 6-10 09/29/16 01:45 10/02/16 11:40 Acetaminophen (Tylenol) 650 mg Q4H PRN PO TEMPERATURE > 101.5 F 09/29/16 01:45 Naloxone HCl (Narcan Inj) 0.4 mg UNSCH PRN IV RESPIRATORY RATE LESS THAN 10 09/29/16 01:45 Diphenhydramine HCl (Benadryl Inj) 25 mg Q6H PRN IV ITCHING 09/29/16 01:45 COLLECTIONS DIRECTOR Dosage Infused (Pha) 1 Q8HR .XX 09/29/16 06:00 10/01/16 15:05 Lactulose (Lactulose Liq) 30 ml DAILY PO 09/29/16 09:00 10/02/16 08:48 Enoxaparin Sodium (Lovenox Inj) 30 mg Q12H SQ 09/30/16 11:00 10/02/16 11:31 Citalopram Hydrobromide (CeleXA) 40 mg DAILY PO 09/30/16 10:00 10/02/16 08:48 Calcium Carbonate (Tums Chew) 500 mg Q12HR PRN CHEW INDIGESTION 09/30/16 16:00 09/30/16 16:22 Famotidine (Pepcid) 20 mg BID PO 09/30/16 21:00 10/02/16 08:48 Fentanyl (Duragesic 50 Mcg Patch.72 Hr) 1 patch Q3D T-DERMAL 10/02/16 15:00 Miscellaneous Information 1 Q3D T-DERMAL 10/05/16 15:00 Medical Decision Making MDM Remarks 51 y/o female s/p ORIF L3 burst fracture, L2-L4 posterolateral fixation 09/29/16, POD 4, neuro stable, moderate lumbar pain Plan Plan Remarks cont supportive care of pain, cont therapy, TLSO when out of bed clear to dc when pain better controlled, may benefit from short term rehab vs C PT Saida Sanchez Oct 02, 2016 16:26
[2016-10-02 19:42] VITALS: BP 109/74; PULSE 84; RESP 18; TEMP 98.8; O2SAT 100
[2016-10-03 00:43] VITALS: BP 109/76; PULSE 88; RESP 18; TEMP 98.9; O2SAT 99
[2016-10-03 03:16] VITALS: BP 137/65; PULSE 68; RESP 18; TEMP 96.7; O2SAT 100
[2016-10-03] MEDS: PCA - TOTAL MG DILAUDID DELIVERED PER SHIFT SCH ×2 (03:21→14:00)
[2016-10-03] MEDS: oxyCODONE/ACETAMINOPHEN 5 MG/325 MG TAB PO PRN ×4 (03:21→16:10)
[2016-10-03] MEDS: METHOCARBAMOL 500 MG TAB PO SCH ×2 (06:21→14:37)
[2016-10-03] MEDS: DOCUSATE SODIUM 100 MG CAP PO SCH (07:46)
[2016-10-03] MEDS: LACTULOSE SYRUP 20 GM/30 ML CUP PO SCH (07:46)
[2016-10-03] MEDS: CITALOPRAM HYDROBROMIDE 40 MG TAB PO SCH (07:46)
[2016-10-03] MEDS: FAMOTIDINE 20 MG TAB PO SCH (07:46)
[2016-10-03] MEDS: SODIUM CHLORIDE 0.9% FLUSH 5 ML FLUSH IVF SCH (07:47)
[2016-10-03 08:00] VITALS: BP 116/75; PULSE 73; RESP 18; TEMP 98.8; O2SAT 98
[2016-10-03] MEDS ORDERED: BISACODYL EC 5 MG TABEC PO ONE (08:00)
[2016-10-03] MEDS ORDERED: BISACODYL 10 MG SUPP RECTAL ONE (08:00)
[2016-10-03] MEDS ORDERED: PERC5TAB12 PO (11:15)
[2016-10-03] MEDS ORDERED: ROBA500T PO (11:16)
[2016-10-03] MEDS: ENOXAPARIN SODIUM 30 MG/0.3 ML SYRINGE SQ SCH (11:57)
[2016-10-03 12:00] VITALS: BP 126/70; PULSE 61; RESP 18; TEMP 97.8; O2SAT 100
--- NOTE | 2016-10-03 14:26 | HHI.PR ---
Subjective Subjective Notes PTD: 4 Patient sitting up in bed. Patient states, "yesterday was a bad day, but today it's progressing." Patient wants to know what hardware in in her back. Patient complaining that hospital bed is "lumpy and bumpy." She is very tearful today, and patient states, "I have no one to take care of me at home. My son won't be in town until tomorrow " Discussed with RN at bedside: RN states that the patient has been getting out of bed unassisted, and walks frequently wearing TLSO brace. Objective Vitals/I&O Vital Signs Date Time Temp Pulse Resp B/P Pulse Ox O2 Delivery O2 Flow Rate FiO2 10/03/16 12:00 97.8 61 18 126/70 100 10/03/16 07:45 Room Air 10/01/16 08:40 2.00 Labs Laboratory Tests Test 09/29/16 09/29/16 09/29/16 09/29/16 01:25 01:26 03:50 05:56 Antibody Screen NEGATIVE Crossmatch Leukocyte-Reduced Red Blood Cells Blood Bank Comment Blood Type O NEGATIVE Blood Gas Patient Temperature 98.6 Blood Gas HCO3 18 mmol/L Blood Gas Base Excess -6.1 mmol/L Blood Gas Oxygen Saturation 97 % Arterial Blood pH 7.36 Arterial Blood Partial 34 mmHg Pressure CO2 Arterial Blood Partial 270 mmHg Pressure O2 Arterial Blood Oxygen Content 14.8 Vol % Arterial Blood 1.5 % Carboxyhemoglobin Arterial Blood Methemoglobin 1.3 % Blood Gas Hemoglobin 10.4 G/DL Blood Gas Inspired Oxygen 60 % Total Bilirubin 0.3 MG/DL Direct Bilirubin 0.1 MG/DL Indirect Bilirubin 0.2 MG/DL Aspartate Amino Transf 28 U/L (AST/SGOT) Alanine Aminotransferase 22 U/L (ALT/SGPT) Alkaline Phosphatase 54 U/L Albumin 2.2 GM/DL Test 09/29/16 09/30/16 06:20 03:46 Nasal Screen MRSA (PCR) MRSA NOT DETECTED White Blood Count 11.6 TH/MM3 Red Blood Count 2.31 MIL/MM3 Hemoglobin 7.7 GM/DL Hematocrit 23.1 % Mean Corpuscular Volume 100.1 FL Mean Corpuscular Hemoglobin 33.2 PG Mean Corpuscular Hemoglobin 33.2 % Concent Red Cell Distribution Width 12.2 % Platelet Count 189 TH/MM3 Mean Platelet Volume 7.5 FL Neutrophils (%) (Auto) 69.3 % Lymphocytes (%) (Auto) 21.0 % Monocytes (%) (Auto) 9.6 % Eosinophils (%) (Auto) 0.0 % Basophils (%) (Auto) 0.1 % Neutrophils # (Auto) 8.0 TH/MM3 Lymphocytes # (Auto) 2.4 TH/MM3 Monocytes # (Auto) 1.1 TH/MM3 Eosinophils # (Auto) 0.0 TH/MM3 Basophils # (Auto) 0.0 TH/MM3 CBC Comment DIFF FINAL Differential Comment Sodium Level 136 MEQ/L Potassium Level 3.9 MEQ/L Chloride Level 102 MEQ/L Carbon Dioxide Level 27.8 MEQ/L Anion Gap 6 MEQ/L Blood Urea Nitrogen 10 MG/DL Creatinine 0.78 MG/DL Estimat Glomerular Filtration 78 ML/MIN Rate Random Glucose 113 MG/DL Calcium Level 7.4 MG/DL Protein Corrected Calcium 8.1 MG/DL Total Protein 5.8 GM/DL Radiology Last Impressions Lumbar Spine X-Ray 09/29/16 0000 Signed Impressions: Service Date/Time: Thursday, September 29, 2016 04:38 - CONCLUSION: Fixation of L3 compression fracture or. Hardware is grossly intact. Ranjit Herzog MD Lumbar Spine MRI 09/28/162146 Signed Impressions: Service Date/Time: Wednesday, September 28, 2016 22:37 - CONCLUSION: Prominent compression deformity with posterior displacement of the L3 vertebral body. The thecal sac is markedly narrowed. There is an epidural hematoma posteriorly L3 extending down to the L4-5 disc space. Non displaced compression deformity of T12. Ranjit Herzog MD Lumbar Spine CT 09/28/162146 Signed Impressions: Service Date/Time: Wednesday, September 28, 2016 22:25 - CONCLUSION: Severe unstable fracture of the L3 level involving the anterior and posterior aspects of the L3 vertebral body and the base of the spinous process and the left lamina and left inferior facet. There is very prominent posterior retropulsion of the posterior superior aspect of the L3 vertebral body creating severe stenosis. Kenneth Ortez MD Narrative Exam GENERAL: This is a 51-year-old female sitting up in bed. No distress noted. However, very tearful today. SKIN: Warm and dry. HEAD: Atraumatic. Normocephalic. EYES: PERRLA ENT: No nasal bleeding or discharge. Mucous membranes pink and moist. NECK: Trachea midline. No JVD. CARDIOVASCULAR: Regular rate and rhythm. RESPIRATORY: No accessory muscle use. Lungs are clear to auscultation. Breath sounds equal bilaterally. No distress or dyspnea. GASTROINTESTINAL: BS + x 4 quads. Abdomen soft, non-tender, nondistended. MUSCULOSKELETAL: Extremities without cyanosis, or edema. + peripheral pulses x 4 extremities. Warm with good capillary refill and sensation. MAEW. SUMAYA drain placed to bulb suction to back. NEUROLOGICAL: Awake and alert. Normal speech and pattern. Tearful. A/P Problem List: (1) Fall on and from ladder causing accidental injury (2) Fracture of right inferior pubic ramus (3) Generalized anxiety disorder Assessment and Plan [place]: This is a 51-year-old female who sustained a fall from 10 feet all working on a ladder. She was transferred from [facility]. PMHX: Anxiety, depression INJURIES: L3 burst fx with epidural hematoma RIGHT pubic rami fx T 12 Fx? Procedures: 10/17: Lumbar laminectomy with fusion of L3 fx, L1 - 5 fusion Consults: Neurosurgery, orthopedics. Rehabilitation medicine. Neuropsychology. Diet: Regular diet. Tolerating po diet. Encourage good po intake with each meal. Pulmonary: Encourage good pulmonary toileting. IS at bedside and pt encouraged to use. Rationale for use explained to patient, and verbalized understanding. PAIN Management: Percocet 5 mg q4h. Fentanyl patch 50 mcg. morphine 2 mg q2h. Robaxin 500 mg q8h. Activity: OOB. PT ordered. WBAT RLE. TLSO brace when out of bed. GI prophylaxis: Pepcid po. Bowel regimen: Colace. Lactulose. LBM: 0 Intensified with bisacodyl P0/KS 1 dose today. DVT prophylaxis: Mechanical VTE with SCDs. Chemical management with Lovenox 30 BID SQ. DC Planning: Case management consulted for assistance with final discharge disposition. Collaborated with admissions nurse from [facility]. Unable to accept to patient due to Medicaid status, and no [facility] beds are available this month. Plan for discharge home with home health care tomorrow morning when her son comes into town. Obtaining DME. Emotional support provided to patient and family at bedside and plan of care discussed. Discussed with RN at bedside. Patient is hemodynamically stable and being managed on the med/surg floor. L3 burst fx with epidural hematoma Neurosurgery consulted to assist with management and care 09/29: Lumbar laminectomy with fusion of L3 fx, L1-5 fusion Serial neuro checks Pain management Encourage out of bed PT ordered TLSO brace when out of bed Patient walking with minimal assist RIGHT pubic rami fx Orthopedics consult to assist in management and care Nonoperative management Pain management PT ordered Encourage out of bed WBAT RLE Patient walking with minimal assist Attending Statement The exam, history, and the medical decision-making described in the above note were completed with the assistance of the mid-level provider. I reviewed and agree with the findings presented. I attest that I had a [id number] encounter with the patient on the same day, and personally performed and documented my assessment and findings in the medical record. Problem Qualifiers (1) Fall on and from ladder causing accidental injury: Qualified Code: W11.XXXA - Fall on and from ladder causing accidental injury, initial encounter (2) Fracture of right inferior pubic ramus: Qualified Code: S32.591A - Fracture of right inferior pubic ramus, closed, initial encounter Farzaneh Benitez Oct 03, 2016 14:25 Raul Snow MD Oct 03, 2016 19:14
--- NOTE | 2016-10-03 15:36 | HHI.DS ---
Discharge Summary Admission Date Sep 28, 2016 at 21:45 Discharge Date: Oct 03, 2016 Admitting Diagnosis L3 burst column fracture, right pelvic rami fractue (1) Fall on and from ladder causing accidental injury Diagnosis: Principal (2) Fracture of right inferior pubic ramus Diagnosis: Principal (3) Generalized anxiety disorder Diagnosis: Principal Brief History Fall from ladder. CBC/BMP: 09/30/16 0346 09/30/16 0346 Imaging Last Impressions Lumbar Spine X-Ray 09/29/16 0000 Signed Impressions: Service Date/Time: Thursday, September 29, 2016 04:38 - CONCLUSION: Fixation of L3 compression fracture or. Hardware is grossly intact. Ranjit Herzog MD Lumbar Spine MRI 09/28/162146 Signed Impressions: Service Date/Time: Wednesday, September 28, 2016 22:37 - CONCLUSION: Prominent compression deformity with posterior displacement of the L3 vertebral body. The thecal sac is markedly narrowed. There is an epidural hematoma posteriorly L3 extending down to the L4-5 disc space. Non displaced compression deformity of T12. Ranjit Herzog MD Lumbar Spine CT 09/28/162146 Signed Impressions: Service Date/Time: Wednesday, September 28, 2016 22:25 - CONCLUSION: Severe unstable fracture of the L3 level involving the anterior and posterior aspects of the L3 vertebral body and the base of the spinous process and the left lamina and left inferior facet. There is very prominent posterior retropulsion of the posterior superior aspect of the L3 vertebral body creating severe stenosis. Kenneth Ortez MD PE at Discharge GENERAL: This is a 51-year-old female sitting up in bed. No distress noted. SKIN: Warm and dry. HEAD: Atraumatic. Normocephalic. EYES: PERRLA ENT: No nasal bleeding or discharge. Mucous membranes pink and moist. NECK: Trachea midline. No JVD. CARDIOVASCULAR: Regular rate and rhythm. RESPIRATORY: No accessory muscle use. Lungs are clear to auscultation. Breath sounds equal bilaterally. No distress or dyspnea. GASTROINTESTINAL: BS + x 4 quads. Abdomen soft, non-tender, nondistended. MUSCULOSKELETAL: Extremities without cyanosis, or edema. + peripheral pulses x 4 extremities. Warm with good capillary refill and sensation. MAEW. SUMAYA drain placed to bulb suction to back. NEUROLOGICAL: Awake and alert. Normal speech and pattern. Tearful. Hospital Course [place]: This is a 51-year-old female who sustained a fall from 10 feet all working on a ladder. She was transferred from [facility]. PMHX: Anxiety, depression INJURIES: L3 burst fx with epidural hematoma RIGHT pubic rami fx T 12 Fx? Procedures: 10/17: Lumbar laminectomy with fusion of L3 fx, L1 - 5 fusion Consults: Neurosurgery, orthopedics. Rehabilitation medicine. Neuropsychology. Patient wants to go home The patient is now tolerating a po diet. Eating and drinking well. Pain is being managed well with PO pain medications, and patient is being a provided with a script for pain meds upon discharge. (NO driving while taking narcotic pain medication enforced to patient.) We have recommended to patient to continue with stool softeners while taking narcotic pain medications to prevent constipation. Intensified with bisacodyl P0/MA 1 dose today. Pt has been participating in PT while admitted at [place] and has been ambulating with their assistance and independently . Patient discharged with home health care PT. All follow up appointments have been provided and discussed with the patient. It is recommended that the patient keeps all his follow up appointments for continued recovery. Therefore, the patient is stable to be safely discharged home (with home health care PT) from a trauma surgery standpoint. Thank you for allowing us to participate in her care. We wish Marianne the best in her recovery. L3 burst fx with epidural hematoma Neurosurgery consulted to assist with management and care 09/29: Lumbar laminectomy with fusion of L3 fx, L1-5 fusion Serial neuro checks Pain management Encourage out of bed PT ordered TLSO brace when out of bed Patient walking with minimal assist Follow-up with neurosurgery outpatient RIGHT pubic rami fx Orthopedics consult to assist in management and care Nonoperative management Pain management PT ordered Encourage out of bed WBAT RLE Patient walking with minimal assist Follow-up with orthopedics outpatient. Pt Condition on Discharge: Stable Discharge Disposition: Disch w/ Home Health Serv Discharge Instructions DIET: Follow Instructions for: As Tolerated, No Restrictions Activities you can perform: Regular-No Restrictions Activities to Avoid: Driving for 24 hrs, Concussion Sports, Contact Sports, Lifting/Bending, Strenuous Activity Attending Statement The exam, history, and the medical decision-making described in the above note were completed with the assistance of the mid-level provider. I reviewed and agree with the findings presented. I attest that I had a [id number] encounter with the patient on the same day, and personally performed and documented my assessment and findings in the medical record. Farzaneh Benitez Oct 03, 2016 15:36 Raul Snow MD Oct 03, 2016 19:16
[2016-10-05] MEDS ORDERED: REMOVE OLD FENTANYL PATCH T-DERMAL SCH (15:00)
== END 2016-10-03 17:18 | disposition home health service (06) | DRG 958 ==
LOC: NEPE 21:20 → NEDA 21:45 → N03A 09-29 07:03 → N06B 10-01 06:57
PROVIDERS: ADMIT Surgery; ATTEND Surgery
PROC: 0SG1071 Fusion of 2 or more Lumbar Vertebral Joints with Autologous Tissue Substitute, Posterior Approach, Posterior Column, Open Approach (ICD-10-PCS; 2016-09-29)
PROC: 00NY0ZZ Release Lumbar Spinal Cord, Open Approach (ICD-10-PCS; 2016-09-29)
PROC: 0QS00ZZ Reposition Lumbar Vertebra, Open Approach (ICD-10-PCS; principal; 2016-09-29 00:52)
DX: S32.032A Unstable burst fracture of third lumbar vertebra, initial encounter for closed fracture (principal); S34.103A Unspecified injury to L3 level of lumbar spinal cord, initial encounter; S06.4X0A Epidural hemorrhage without loss of consciousness, initial encounter; S22.089A Unspecified fracture of T11-T12 vertebra, initial encounter for closed fracture; S32.591A Other specified fracture of right pubis, initial encounter for closed fracture; W11.XXXA Fall on and from ladder, initial encounter; Y92.9 Unspecified place or not applicable; Y99.9 Unspecified external cause status; Z96.653 Presence of artificial knee joint, bilateral; M48.06 Spinal stenosis, lumbar region; K59.00 Constipation, unspecified; F41.1 Generalized anxiety disorder; F32.9 Major depressive disorder, single episode, unspecified; Y93.H9 Activity, other involving exterior property and land maintenance, building and construction; R20.0 Anesthesia of skin
CPT/HCPCS: 72100; 72131; 72148; 76000; 80048; 80076; 84155; 85025; 85027; 86850; 86900; 86901; 86920; 87641; 94150; 96374; 96375; C1713; C9113; J0131; J0690; J1030; J1100; J1170; J1580; J1644; J1650; J2270; J2370; J2405; J2710; J3010; J3370; J3480; J7030; J7040; J7050; J7120; L0200; L0484